=== PATIENT | male | born 1940 | race Caucasian/White ===

== ENCOUNTER 2016-12-31 | Outpatient (CLI) | payer MEDICARE, OTHER | END 2016-12-31 02:50 | disposition EMS.NT ==

== ENCOUNTER 2017-01-05 19:05 | Outpatient (CLI) | payer MEDICARE, OTHER | END 2017-01-05 19:06 | disposition EMS.NT | DX: Z03.89 Encounter for observation for other suspected diseases and conditions ruled out (principal); W18.39XA Other fall on same level, initial encounter; Y92.018 Other place in single-family (private) house as the place of occurrence of the external cause ==

== ENCOUNTER 2017-01-16 15:50 | Outpatient (CLI) | payer MEDICARE, OTHER | END 2017-01-16 15:51 | disposition EMS.NT | DX: Z03.89 Encounter for observation for other suspected diseases and conditions ruled out (principal); W01.0XXA Fall on same level from slipping, tripping and stumbling without subsequent striking against object, initial encounter; Y92.89 Other specified places as the place of occurrence of the external cause ==

== ENCOUNTER 2017-01-18 13:58 | Outpatient (CLI) | payer MEDICARE, OTHER | END 2017-01-18 13:59 | disposition critical access hospital (66) | DX: K59.00 Constipation, unspecified (principal); R33.9 Retention of urine, unspecified; W19.XXXA Unspecified fall, initial encounter | CPT/HCPCS: A0425; A0429 ==

== ENCOUNTER 2017-03-01 13:27 | Outpatient (CLI) | payer MEDICARE, OTHER | END 2017-03-01 13:28 | disposition short-term general hospital (02) | DX: R53.1 Weakness (principal); R41.0 Disorientation, unspecified; R10.9 Unspecified abdominal pain | CPT/HCPCS: A0425; A0429 ==

== ENCOUNTER 2017-03-07 20:36 | Outpatient (CLI) | payer MEDICARE, OTHER | END 2017-03-07 20:37 | disposition EMS.NT | LOC: EMS 20:36 | PROVIDERS: ATTEND Surgery | DX: Z03.89 Encounter for observation for other suspected diseases and conditions ruled out (principal) ==

== ENCOUNTER 2017-04-28 20:42 | Outpatient (CLI) | payer MEDICARE, OTHER | END 2017-04-28 20:43 | disposition short-term general hospital (02) | LOC: EMS 20:42 | PROVIDERS: ATTEND Surgery | DX: R53.1 Weakness (principal) | CPT/HCPCS: A0425; A0429 ==

== ENCOUNTER 2018-03-25 14:37 | Outpatient (CLI) | payer MEDICARE, OTHER | END 2018-03-25 14:38 | disposition home or self-care (01) | LOC: DI 14:37 | PROVIDERS: ATTEND Specialist | DX: I35.0 Nonrheumatic aortic (valve) stenosis (principal); I51.7 Cardiomegaly; I10 Essential (primary) hypertension; E78.5 Hyperlipidemia, unspecified; I25.10 Atherosclerotic heart disease of native coronary artery without angina pectoris; Z95.5 Presence of coronary angioplasty implant and graft | CPT/HCPCS: 93306 ==

== ENCOUNTER 2018-04-18 08:00 | Outpatient (CLI) | payer MEDICARE, OTHER | END 2018-04-18 08:01 | disposition home or self-care (01) | LOC: LAB.N 08:00 | PROVIDERS: ATTEND Specialist | DX: M54.9 Dorsalgia, unspecified (principal) | CPT/HCPCS: 36415; 82565 ==

== ENCOUNTER 2018-06-24 16:52 | Outpatient (CLI) | payer MEDICARE, OTHER ==
--- NOTE | 2018-06-24 23:40 | Ultrasound Report ---
Reason: INCONTINENCE Procedure Date: 06/24/2018 Accession Number: [id number] / [id number] Procedure: US - Bladder CPT Code: FULL RESULT: EXAM: PELVIS ULTRASOUND, LIMITED EXAM DATE: 06/24/2018 05:53 PM. CLINICAL HISTORY: Incontinence COMPARISON: None. TECHNIQUE: Real-time scanning was performed with static images obtained. FINDINGS: Bilateral ureteral jets are seen. The urinary bladder demonstrates normal contour without evidence of mass. Prevoid bladder volume is 80 cc. Postvoid residual bladder volume 67 cc. IMPRESSION: 1. Bladder contour is within normal limits. 2. Bilateral ureteral jets were seen. 3. Moderate post void residual bladder volume of 67 cc. Prevoid bladder volume was 80 cc. RADIA
== END 2018-06-24 16:53 | disposition home or self-care (01) ==
LOC: DI 16:52
PROVIDERS: ATTEND Internal Medicine
DX: R32 Unspecified urinary incontinence (principal)
CPT/HCPCS: 76857

== ENCOUNTER 2018-07-01 14:17 | Outpatient (CLI) | payer MEDICARE, OTHER ==
--- NOTE | 2018-07-01 15:22 | XRAY Report ---
Reason: PELVIC AND PERINEAL PAIN Procedure Date: 07/01/2018 Accession Number: [id number] / [id number] Procedure: XR - Sacrum/Coccyx CPT Code: FULL RESULT: EXAM: SACRUM AND COCCYX RADIOGRAPHY EXAM DATE: 07/01/2018 02:37 PM. HISTORY: Pelvic and perineal pain. COMPARISONS: None. TECHNIQUE: 2 views. FINDINGS: Alignment: Normal. The sacrum and coccyx are normally aligned. Bones: There is increased facet arthropathy at L5/S1, incompletely visualized and possibly indicative of spondylolysis. There is no acute fracture or dislocation. Joints: There are bilateral degenerative changes of the femoral acetabular joints, moderate. Sacral iliac joints are congruent. Soft Tissues: Soft tissue calcifications in the midline lower pelvis possibly prior seminal vesicle calcifications. IMPRESSION: No acute fracture or dislocation. RADIA
--- NOTE | 2018-07-01 15:27 | XRAY Report ---
Reason: PELVIC AND PERINEAL PAIN Procedure Date: 07/01/2018 Accession Number: [id number] / [id number] Procedure: XR - Pelvis 1 View CPT Code: FULL RESULT: EXAM: PELVIS RADIOGRAPHY EXAM DATE: 07/01/2018 02:42 PM. CLINICAL HISTORY: Pelvic and perineal pain. COMPARISON: None. TECHNIQUE: 1 view. FINDINGS: No fracture or dislocation is identified. There are degenerative changes of both femoral acetabular joints as well as at tendinous insertion sites. Sacroiliac joints are congruent. Pelvic calcifications are noted projecting over the region of the seminal vesicles. IMPRESSION: Degenerative changes as described. RADIA
== END 2018-07-01 14:18 | disposition home or self-care (01) ==
LOC: DI 14:17
PROVIDERS: ATTEND Specialist
DX: M16.0 Bilateral primary osteoarthritis of hip (principal)
CPT/HCPCS: 72170; 72220

== ENCOUNTER 2018-10-28 10:38 | Outpatient (CLI) | payer MEDICARE, OTHER | END 2018-10-28 10:39 | disposition short-term general hospital (02) | LOC: EMS 10:38 | PROVIDERS: ATTEND Surgery | DX: M54.9 Dorsalgia, unspecified (principal) | CPT/HCPCS: A0425; A0429 ==

== ENCOUNTER 2019-01-11 16:51 | Outpatient (CLI) | payer MEDICARE, OTHER ==
--- NOTE | 2019-01-12 08:58 | Ultrasound Report ---
Reason: LVTS / PVR Procedure Date: 01/11/2019 Accession Number: [id number] / [id number] Procedure: US - Bladder CPT Code: FULL RESULT: EXAM: PELVIS ULTRASOUND, LIMITED EXAM DATE: 01/11/2019 05:44 PM. CLINICAL HISTORY: UTI symptoms; difficulty urinating. Incontinence. COMPARISON: BLADDER 06/24/2018 5:06 PM. TECHNIQUE: Real-time scanning was performed with static images obtained. FINDINGS: The urinary bladder is not well distended measuring 4.6 x 4.5 x 5.1 with a pre-voiding volume of 56 cc. Patient was unable to void. A left ureteral jet was noted. Right ureter jet was not seen with greater than 4 minutes of direct imaging. Patient declined to wait further. IMPRESSION: 1. Low volume prevoid bladder; patient unable to void at this exam. 2. Right ureteral jet not visualized with greater than 4 minutes of imaging. RADIA
== END 2019-01-11 16:52 | disposition home or self-care (01) ==
LOC: DI 16:51
PROVIDERS: ATTEND Internal Medicine
DX: R39.198 Other difficulties with micturition (principal); R32 Unspecified urinary incontinence
CPT/HCPCS: 76857

== ENCOUNTER 2019-01-27 14:43 | Outpatient (CLI) | payer MEDICARE, OTHER | END 2019-01-27 14:44 | disposition critical access hospital (66) | LOC: EMS 14:43 | PROVIDERS: ATTEND Surgery | DX: R53.1 Weakness (principal); R41.0 Disorientation, unspecified | CPT/HCPCS: A0425; A0427 ==

== ENCOUNTER 2019-01-27 15:14 | Emergency (ER) | payer MEDICARE, OTHER ==
[2019-01-27 15:49] LABS: BASOPHILS % (AUTO) 0.3 %; EOSINOPHILS # (AUTO) 0.1 10^3/uL (0.0-0.7); HGB - HEMOGLOBIN 11.8 g/dL (14.0-18.0); LYMPHOCYTES # (AUTO) 1.1 10^3/uL (1.5-3.5); LYMPHOCYTES % (AUTO) 19.5 %; MEAN CORPUSCULAR HEMOGLOBIN 31.6 pg (27.0-31.0); MEAN CORPUSCULAR HGB CONC 34.4 g/dL (32.0-36.0); MEAN CORPUSCULAR VOLUME 91.9 fL (80.0-94.0); MONOCYTES # (AUTO) 0.6 10^3/uL (0.0-1.0); MONOCYTES % (AUTO) 10.7 %; NEUTROPHILS % (AUTO) 68.5 %; PLT - PLATELET COUNT 179 10^3/uL (130-450); RED BLOOD COUNT 3.74 10^6/uL (4.70-6.10); RED CELL DISTRIBUTION WIDTH 13.1 % (12.0-15.0); WHITE BLOOD COUNT 5.8 x10^3/uL (4.8-10.8)
[2019-01-27 16:03] LABS: ALBUMIN 3.2 g/dL (3.2-5.5); BILIRUBIN,TOTAL 0.9 mg/dL (0.2-1.0); CALCIUM 8.7 mg/dL (8.5-10.3); CREATININE 0.8 mg/dL (0.6-1.2); TOTAL PROTEIN 6.4 g/dL (6.7-8.2)
--- NOTE | 2019-01-27 16:16 | ED Physician Documentation ---
PD HPI ABD PAIN - Stated complaint Stated Complaint: WEAKNESS - Chief complaint Chief Complaint: Abd Pain - History obtained from History obtained from: Patient - History of Present Illness Timing - onset: How many weeks ago (1 week of general abd bloating and fullness, and does not remember having BM for at least that long. Feels he is constipated. Also having intermittent incontinence of urine, with feeling he has to suddenly go and "squirting" some out. Then feeling he can't urinate when wanting to at times. Feeling of incomplete emptying. He feels this started after having a catheter placed a month ago for urinary retention and had the catheter just 1-2 days, and he says the person who took it out "pulled it out too fast" and he has had urinary symptoms since (he does not seem to accept the idea that he had urinary symptoms prior, which led to the need for the catheter in the first place).) Timing - duration: Weeks Timing - details: Gradual onset, Waxing and waning Quality: Cramping, Aching, Fullness/distended Location: Suprapubic, Other (lower abd) Radiation: No: Left flank, Right flank Worsened by: Eating Associated symptoms: Constipation. No: Nausea, Vomiting, Diarrhea Similar symptoms before: Has not had sx before Recently seen: Emergency Dept (at [facility] for abd pain and had catheter placed for urinary retention, but he had it removed in 1-2 days later as it was too uncomfortable.) Review of Systems Constitutional: denies: Fever, Chills Nose: denies: Rhinorrhea / runny nose, Congestion Throat: denies: Sore throat Respiratory: denies: Cough GI: reports: Abdominal Pain, Constipation. denies: Nausea, Vomiting, Diarrhea : reports: Frequency, Unable to Void, Incontinent Skin: denies: Rash, Lesions PD PAST MEDICAL HISTORY - Past Medical History Cardiovascular: High cholesterol Endocrine/Autoimmune: Type 2 diabetes - Past Surgical History Cardiovascular: Coronary stent - Present Medications Home Medications: Ambulatory Orders Medication Instructions Recorded Confirmed Bisacodyl 10 mg PO DAILY 08/28/16 08/28/16 Bupropion HCl [Bupropion HCl Sr] 150 mg PO BID 08/28/16 08/28/16 Carvedilol [Coreg] 6.25 mg PO BID 08/28/16 08/28/16 Clopidogrel Bisulfate [Plavix] 75 mg PO DAILY 08/28/16 08/28/16 Escitalopram Oxalate [Lexapro] 20 mg PO DAILY 08/28/16 08/28/16 Insulin Glargine [Lantus] 08/28/16 Lisinopril/Hydrochlorothiazide 1 tab PO DAILY 08/28/16 08/28/16 [Lisinopril-Hctz 20-25 mg Tab] Pravastatin [Pravachol] 20 mg PO DAILY 08/28/16 08/28/16 Trazodone HCl 100 mg PO DAILY 08/28/16 08/28/16 metFORMIN [Glucophage] 1,000 mg PO BID 08/28/16 08/28/16 Oxybutynin [Ditropan] 5 mg PO BID #20 tablet 01/27/19 Polyethylene Glycol 3350 [Miralax] 17 gm PO DAILY PRN #1 bottle 01/27/19 - Allergies Allergies/Adverse Reactions: Allergies Allergy/AdvReac Type Severity Reaction Status Date / Time Sulfa (Sulfonamide Allergy Unknown Verified 01/27/19 15:20 Antibiotics) - Social History Does the pt smoke?: No Smoking Status: Never smoker PD ED PE NORMAL - Vitals Vital signs reviewed: Yes - General General: Alert and oriented X 3, Well developed/nourished - HEENT HEENT: Pharynx benign - Neck Neck: Supple, no meningeal sign - Cardiac Cardiac: RRR, No murmur - Respiratory Respiratory: Clear bilaterally - Abdomen Abdomen: Soft, Non tender, Non distended. No: Normal bowel sounds (hypoactive) Results - Vitals Vitals: Vital Signs - 24 hr 01/27/19 01/27/19 01/27/19 15:16 15:24 18:29 Temperature 36.8 C 36.9 C Heart Rate 77 88 88 Respiratory 18 18 20 Rate Blood Pressure 147/78 H 191/94 H O2 Saturation 100 98 96 Oxygen O2 Source Room air - Labs Labs: Laboratory Tests 01/27/19 01/27/19 01/27/19 15:44 15:44 15:44 WBC 5.8 RBC 3.74 L Hgb 11.8 L Hct 34.4 L MCV 91.9 MCH 31.6 H MCHC 34.4 RDW 13.1 Plt Count 179 MPV 9.0 Neut # (Auto) 4.0 Lymph # (Auto) 1.1 L [place] # (Auto) 0.6 Eos # (Auto) 0.1 Baso # (Auto) 0.0 Absolute Nucleated RBC 0.00 Nucleated RBC % 0.1 Sodium 137 Potassium 3.4 L Chloride 100 L Carbon Dioxide 30 Anion Gap 7.0 BUN 15 Creatinine 0.8 Estimated GFR (MDRD) 94 Glucose 243 H Calcium 8.7 Phosphorus 2.8 Magnesium 1.7 Total Bilirubin 0.9 AST 21 ALT 15 Alkaline Phosphatase 84 Total Protein 6.4 L Albumin 3.2 Globulin 3.2 Albumin/Globulin Ratio 1.0 Lipase 19 L Urine Color Urine Clarity Urine pH Ur Specific [place] Urine Protein Urine Glucose (UA) Urine Ketones Urine Occult Blood Urine Nitrite Urine Bilirubin Urine Urobilinogen Ur Leukocyte Esterase Ur Microscopic Review Urine Culture Comments 01/27/19 17:39 WBC RBC Hgb Hct MCV MCH MCHC RDW Plt Count MPV Neut # (Auto) Lymph # (Auto) [place] # (Auto) Eos # (Auto) Baso # (Auto) Absolute Nucleated RBC Nucleated RBC % Sodium Potassium Chloride Carbon Dioxide Anion Gap BUN Creatinine Estimated GFR (MDRD) Glucose Calcium Phosphorus Magnesium Total Bilirubin AST ALT Alkaline Phosphatase Total Protein Albumin Globulin Albumin/Globulin Ratio Lipase Urine Color YELLOW Urine Clarity CLEAR Urine pH 7.0 Ur Specific [place] 1.015 Urine Protein TRACE Urine Glucose (UA) >=1000 H Urine Ketones NEGATIVE Urine Occult Blood NEGATIVE Urine Nitrite NEGATIVE Urine Bilirubin NEGATIVE Urine Urobilinogen 0.2 (NORMAL) Ur Leukocyte Esterase NEGATIVE Ur Microscopic Review NOT INDICATED Urine Culture Comments NOT INDICATED - Rads (name of study) abd CT Radiology: Prelim report reviewed, Discussed with rads (no acute process in abd. Large amount of fatty tissue symmetrically in the retroperitoneal space, c/w lipomatosis, but he did not feel it was causing abd symptoms even though pushing into abd cavity space. ), See rad report PD MEDICAL DECISION MAKING - ED course Complexity details: reviewed results (post void residual was 262 ml, but he does not want another bustillos (had one last month and feels that was the cause of his problems).), re-evaluated patient (His CT did not show obvious cause for pain. There was a dramatic amount of lipomatous enlargement in retroperitoneal space, that it is crowding about 2/3 of the abd cavity. This may be giving him pressure on intestines with feeling of fullness. I talked with Radiologist and he did not feel it was tumorous, given the symmetry of it. PMD will maybe want to give surgical referral if symptoms do not improve with working on bladder spasms idea. ), considered differential (consider intestinal pain such as constipation, as he feels it is. However he is having bladder symptoms too. ), d/w patient Departure - Departure Disposition: Home, Self Care Clinical Impression: Bladder spasms, Lipomatosis Constipation Qualifiers: Constipation type: unspecified constipation type Qualified Code(s): K59.00 - Constipation, unspecified Condition: Stable Record reviewed to determine appropriate education?: Yes Instructions: ED Constipation Follow-Up: Franco Hernandes MD [Primary Care Provider] - Prescriptions: Oxybutynin [Ditropan] 5 mg PO BID #20 tablet Polyethylene Glycol 3350 [Miralax] 17 gm PO DAILY PRN #1 bottle PRN Reason: Constipation Comments: For the constipation, you can use a dose of MiraLAX every 1-2 hours tonight and tomorrow until you have bowel movements. Then take it just once daily. For your troubles urinating, it does sound perhaps like bladder spasms and you can try oxybutynin which is a muscle relaxant for the bladder and see if that improves your urine output and less incontinence. Stay well-hydrated. Continue your other usual medicines. Follow-up with your primary care next week, call for an appointment. Discharge Date/Time: 01/27/19 18:45
[2019-01-27 16:20] LABS: MAGNESIUM 1.7 mg/dL (1.7-2.8); PHOSPHORUS 2.8 mg/dL (2.5-4.6)
[2019-01-27] MEDS ORDERED: MINERAL OIL ENEMA 133 ML BOTTLE RC STA (16:45)
[2019-01-27] MEDS ORDERED: DOCUSATE SODIUM 100 MG CAPSULE PO STA (16:45)
[2019-01-27] MEDS ORDERED: SODIUM CHLORIDE 0.9% 1,000 ML IV ONE (16:45)
[2019-01-27] MEDS ORDERED: IOPAMIDOL-300 100 ML VIAL ONE (16:59)
[2019-01-27] MEDS ORDERED: IOPAMIDOL-300 100 ML VIAL IVP ONE (17:27)
[2019-01-27 17:49] LABS: BILIRUBIN,URINE NEGATIVE (NEGATIVE); GLUCOSE, URINE (UA) >=1000 mg/dL (NEGATIVE); KETONES,URINE (UA) NEGATIVE (NEGATIVE); LEUKOCYTE ESTERASE, URINE NEGATIVE (NEGATIVE); NITRITE,URINE NEGATIVE (NEGATIVE); OCCULT BLOOD,URINE NEGATIVE (NEGATIVE); PROTEIN,URINE TRACE mg/dL (NEGATIVE); UROBILINOGEN,URINE 0.2 (NORMAL) E.U./dL (NORMAL)
[2019-01-27 17:52] LABS: CLARITY,URINE CLEAR (CLEAR)
--- NOTE | 2019-01-27 18:00 | CT Report ---
Reason: abd distension and discomfort for several days Procedure Date: 01/27/2019 Accession Number: [id number] / [id number] Procedure: CT - Abdomen/Pelvis W CPT Code: FULL RESULT: EXAM: CT ABDOMEN AND PELVIS EXAM DATE: 01/27/2019 05:25 PM. CLINICAL HISTORY: Abd distension and discomfort for several days. COMPARISONS: None. TECHNIQUE: Routine helical CT imaging was performed through the abdomen and pelvis. IV contrast: ISOVUE 300 100mL. Enteric contrast: No. Reconstructions: Coronal and sagittal. In accordance with CT protocol optimization, one or more of the following dose reduction techniques were utilized for this exam: automated exposure control, adjustment of mA and/or KV based on patient size, or use of iterative reconstructive technique. FINDINGS: Lung Bases: Unremarkable. Liver: Normal. No masses. Gallbladder/Bile Ducts: Unremarkable. Spleen: Normal. Pancreas: Normal. Adrenal Glands: Small right adrenal adenoma. Unremarkable left adrenal. Kidneys: Small probable cysts. Bilateral perinephric fat stranding. Otherwise unremarkable. No stone or hydronephrosis. Peritoneal Cavity/Bowel: Normal. No free fluid, free air or adenopathy. No masses or acute inflammatory process. The appendix is well visualized and normal. Pelvic Organs: Normal. The bladder and visualized pelvic organs are within normal limits. Vasculature: No aneurysms or other significant abnormality. Bones: No significant abnormality. Other: None. IMPRESSION: Incidental findings as described. No acute disease. RADIA ADDENDUM: 01/27/19 18:25 Also noted is prominent retroperitoneal lipomatosis, a benign condition.
[2019-01-27 18:29] VITALS: BP 191/94
[2019-01-27] MEDS ORDERED: POLYETHYLENE GLYCOL 3350 17 GM PACKET PO STA (18:35)
== END 2019-01-27 18:45 | disposition home or self-care (01) ==
LOC: EDUNIT# → ED 15:14
DX: N32.89 Other specified disorders of bladder (principal); E88.2 Lipomatosis, not elsewhere classified; K59.00 Constipation, unspecified; E11.9 Type 2 diabetes mellitus without complications; Z79.4 Long term (current) use of insulin; Z79.02 Long term (current) use of antithrombotics/antiplatelets
CPT/HCPCS: 36415; 51798; 74177; 80053; 81003; 83690; 83735; 84100; 85025; 96360; 96361; 99283; A9270; Q9967; 81001; 87086

== ENCOUNTER 2019-02-07 19:30 | Outpatient (CLI) | payer MEDICARE, OTHER | END 2019-02-07 19:31 | disposition short-term general hospital (02) | LOC: EMS 19:30 | PROVIDERS: ATTEND Surgery | DX: R44.9 Unspecified symptoms and signs involving general sensations and perceptions (principal) | CPT/HCPCS: A0425; A0429 ==

== ENCOUNTER 2019-03-22 13:54 | Outpatient (CLI) | payer MEDICARE, OTHER ==
--- NOTE | 2019-03-22 15:07 | XRAY Report ---
Reason: PNEUMONIA, UNSPECIFIED ORGANISM Procedure Date: 03/22/2019 Accession Number: [id number] / [id number] Procedure: XRN - Chest 2 View X-Ray CPT Code: 89724 FULL RESULT: EXAM: CHEST RADIOGRAPHY EXAM DATE: 03/22/2019 02:12 PM. CLINICAL HISTORY: Pneumonia, unspecified organism. COMPARISON: ABDOMEN ACUTE 08/28/2016 8:38 PM. TECHNIQUE: 2 views. FINDINGS: Lungs/Pleura: No focal opacities evident. No pleural effusion. No pneumothorax. Normal volumes. Mediastinum: Heart and mediastinal contours are unremarkable. Other: Cervical spinal fusion hardware is partially imaged. IMPRESSION: No definite air space disease is detected. RADIA
== END 2019-03-22 13:55 | disposition home or self-care (01) ==
LOC: DI.N 13:54
PROVIDERS: ATTEND Specialist
DX: J18.9 Pneumonia, unspecified organism (principal)
CPT/HCPCS: 71046

== ENCOUNTER 2019-06-26 12:33 | Outpatient (CLI) | payer MEDICARE, OTHER | END 2019-06-26 12:34 | disposition EMS.NT | LOC: EMS 12:33 | PROVIDERS: ATTEND Surgery | DX: Z03.89 Encounter for observation for other suspected diseases and conditions ruled out (principal) ==

== ENCOUNTER 2019-09-11 10:29 | Outpatient (CLI) | payer MEDICARE, OTHER | END 2019-09-11 10:30 | disposition EMS.NT | LOC: EMS 10:29 | PROVIDERS: ATTEND Surgery | DX: R73.09 Other abnormal glucose (principal) ==

== ENCOUNTER 2019-09-18 07:44 | Outpatient (CLI) | payer MEDICARE, OTHER | END 2019-09-18 07:45 | disposition EMS.NT | LOC: EMS 07:44 | PROVIDERS: ATTEND Surgery | DX: R73.09 Other abnormal glucose (principal) ==

== ENCOUNTER 2019-10-02 10:42 | Outpatient (CLI) | payer MEDICARE, OTHER | END 2019-10-02 10:43 | disposition EMS.NT | LOC: EMS 10:42 | PROVIDERS: ATTEND Surgery | DX: E16.2 Hypoglycemia, unspecified (principal) ==

== ENCOUNTER 2019-10-21 13:15 | Outpatient (CLI) | payer MEDICARE, OTHER | END 2019-10-21 13:16 | disposition short-term general hospital (02) | LOC: EMS 13:15 | PROVIDERS: ATTEND Surgery | DX: E11.649 Type 2 diabetes mellitus with hypoglycemia without coma (principal) | CPT/HCPCS: A0425; A0427 ==

== ENCOUNTER 2019-11-27 14:21 | Outpatient (CLI) | payer MEDICARE, OTHER ==
--- NOTE | 2019-11-28 14:10 | XRAY Report ---
Reason: R HIP PAIN Procedure Date: 11/27/2019 Accession Number: [id number] / [id number] Procedure: XRN - Pelvis 1 View CPT Code: Final Report FULL RESULT: EXAM: PELVIS RADIOGRAPHY EXAM DATE: 11/27/2019 02:35 PM. CLINICAL HISTORY: R hip pain. COMPARISON: 07/01/2018. TECHNIQUE: 1 view. FINDINGS: Bones: Stable mild contour irregularity of the lateral right iliac crest. No acute fracture or bone destructive process. Trochanteric enthesophytes bilaterally. Joints: No subluxation. Stable mild degenerative changes of bilateral hips. Degenerative changes lower lumbar spine. Soft Tissues: Vascular calcifications. IMPRESSION: 1. No acute bony or articular abnormalities identified. 2. Stable bilateral hip DJD and trochanteric enthesophytes. RADIA
== END 2019-11-27 14:22 | disposition home or self-care (01) ==
LOC: DI.N 14:21
PROVIDERS: ATTEND Physician Assistant Medical
DX: M16.0 Bilateral primary osteoarthritis of hip (principal); M76.892 Other specified enthesopathies of left lower limb, excluding foot; M76.891 Other specified enthesopathies of right lower limb, excluding foot
CPT/HCPCS: 72170

== ENCOUNTER 2020-04-11 08:56 | Outpatient (CLI) | payer MEDICARE, OTHER | END 2020-04-11 08:57 | disposition EMS.NT | LOC: EMS 08:56 | PROVIDERS: ATTEND Surgery | DX: M25.551 Pain in right hip (principal); M25.552 Pain in left hip ==

== ENCOUNTER 2020-07-01 07:56 | Outpatient (CLI) | payer MEDICARE, OTHER | END 2020-07-01 07:57 | disposition EMS.NT | LOC: EMS 07:56 | PROVIDERS: ATTEND Surgery | DX: R73.09 Other abnormal glucose (principal) ==

== ENCOUNTER 2020-07-26 14:50 | Outpatient (CLI) | payer MEDICARE, OTHER ==
--- NOTE | 2020-07-26 17:24 | CONSULTATION NOTE ---
Palliative Care Consultation - Referral Referring Provider: Jeana Byrne PA-C Time of Visit: [id number] Referral setting: Home Referral Reason: Cognitive Impairment/Urinary incontinence/Advanced Care Planning - Information Sources Records reviewed: Previous records reviewed History/Review of Systems obtained from: Patient, Family (, Anastasiya and son, BRYANT present) Exam limitations: Clinical condition (STM impairments) - History of Present Illness Brief History of Present Illness: This is a 79-year-old man who is seen and evaluated within his home for initial palliative care consultation with his and son present. The patient's is finding increased difficulty caring for the patient at home. The patient himself, is requiring increased assistance within the home. This is gotten progressively worse over the last year. The patient's son, BRYANT moved in with his parents approximately 1 year ago to provide additional assistance. The patient's is managing his medications as well as the household. The patient's son, BRYANT and his are alternating and who is cooking meals to relieve some burden. The patient's family recognize his cognitive impairment. They report that his long-term memory is intact but he forgets things easily and requires repetition. For example, the patient recently forgot when his son traveled. The patient himself does not recognize any difficulty with his memory. He no longer drives. He requires assistance with dressing and meals. The patient's greatest complaint is in regards to his urinary incontinence. This is been present for at least 1 year and is worsening. The patient denies dysuria, hematuria or suprapubic pain. He is on tamsulosin for BPH. He was scheduled to see his urologist but as the patient's was recently in the hospital this fell through the cracks at the present time. The patient is presently wearing depends. The patient has a history of frequent falls, none recently. The home that the family resides in has multiple level with stairs. Unfortunately the patient has to a send and descend a set of approximately 3 stairs to go to his bedroom as well as the closest bathroom. He uses a walker. Some adaptations have made within the home for safety such as handrails. The patient's appetite has significantly decreased with noted weight loss in the last 6 months. He finds that his clothes are "falling off of me." He snacks throughout the day and does consume dinner but this is a smaller portion than what he previously consumed. He does have a history of diabetes mellitus and is on Lantus 10 units nightly as well as metformin 1000 mg twice daily blood sugars have been ranging between 1 30-1 70. Medical/Surgical History - Past Medical History Cardiovascular: reports: Hypertension, High cholesterol Respiratory: reports: None Neuro: reports: Other (Cognitive impairment) Endocrine/Autoimmune: reports: Type 2 diabetes GI: reports: Chronic constipation : reports: Benign prostate hypertrophy, Incontinence HEENT: reports: Chronic hearing loss Psych: reports: Depression, Anxiety, Other (Insomnia) Musculoskeletal: reports: Chronic back pain - Past Surgical History General: reports: Appendectomy Cardiovascular: reports: Coronary stent HEENT: reports: Cataracts (only one eye s/p cataract extraction) - Substance History Use: Uses substance without health or social issues: Tobacco (Former tobacco use starting in 9th grade.), Cannabis (finds smoking a joint calms his mood and helos him sleep) Social History - Living Situation Living arrangement: At home Living Situation: With spouse/s.o., With family (son, BRYANT) Support System: Patient grew up in [facility] [place]. He was adopted. He served in the [employer] for 4 years active and retired in the [employer]. 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 He met his , Anastasiya at the [employer] and they have been for 56 years. They have 3 children, 2 daughters and 1 son. Their son, BRYANT presently resides with them. Their daughters reside in [place] in [place]. They relocated to [facility] approximately 20 years ago as the patient had [place] and liked the area. They have 1 pet within the home, a dog Lisa. Family History - Family History Family History Comment/Other: Patient was adopted. Is aware that his mother is and had diabetes mellitus Medications/Allergies - Medications Home Medications: Ambulatory Orders Medication Instructions Recorded Confirmed Bisacodyl 10 mg PO DAILY PRN 08/28/16 08/28/16 Carvedilol [Coreg] 6.25 mg PO BID 08/28/16 07/29/20 Clopidogrel Bisulfate [Plavix] 75 mg PO DAILY 08/28/16 07/29/20 Escitalopram Oxalate [Lexapro] 20 mg PO DAILY 08/28/16 07/29/20 Insulin Glargine [Lantus] 10 units SQ DAILY 08/28/16 Pravastatin [Pravachol] 20 mg PO DAILY 08/28/16 07/29/20 Trazodone HCl 100 mg PO DAILY PRN 08/28/16 07/29/20 metFORMIN [Glucophage] 1,000 mg PO BID 08/28/16 07/29/20 Buspirone HCl 10 mg PO BID 07/29/20 07/29/20 Losartan Potassium 50 mg PO DAILY 07/29/20 07/29/20 Polyethylene Glycol 3350 [Miralax] 17 gm PO DAILY 07/29/20 07/29/20 Tamsulosin [Flomax] 0.4 mg PO DAILY 07/29/20 07/29/20 Trospium Chloride 20 mg PO BID 07/29/20 07/29/20 amLODIPine [Norvasc] 5 mg PO DAILY 07/29/20 07/29/20 - Allergies Allergies/Adverse Reactions: Allergies Allergy/AdvReac Type Severity Reaction Status Date / Time Sulfa (Sulfonamide Allergy Unknown Verified 07/28/20 16:05 Antibiotics) Review of Systems - Constitutional Constitutional: reports: Poor appetite, Weight loss. denies: Fever - Eyes Eyes: reports: Corrective lenses - Ears, Nose & Throat Ears, Nose & Throat: reports: Hearing loss. denies: Hearing aids (will not wear his hearing aids as he did not like them), Dentures - Cardiovascular Cardiovascular: denies: Palpitations, Chest pain - Respiratory Respiratory: denies: Cough, SOB at rest - Gastrointestinal Gastrointestinal: reports: Constipation. denies: Abdominal pain, Diarrhea, Nausea, Vomiting - Genitourinary Genitourinary: reports: Incontinence - Musculoskeletal Musculoskeletal: reports: Assistive devices (walker). denies: Joint pain - Integumentary Integumentary: reports: Dryness - Neurological Neurological: reports: General weakness, Memory problems - Psychiatric Psychiatric: reports: Depression, Anxiety - Endocrine Endocrine: reports: Diabetes type 2 - Hematologic/Lymphatic Hematologic/Lymphatic: denies: Recurrent infections - All Other Systems All Other Systems: reports: Reviewed and negative Physical Exam - Vital Signs Temperature: 36.3 C Pulse Rate: 76 O2 Saturation: 98 (on RA) Blood Pressure: 147/78 (left wrist) - Physical Exam General Appearance: positive: No acute distress, Alert, Other (appears older than stated age, dishelved) Eyes Bilateral: positive: Normal inspection ENT: positive: No signs of dehydration, Other (poor dentition; dried, yellow cerumen to right ear canal removed with lighted curette and otoscope with TM visualized and intact without scarring noted) Neck: positive: Trachea midline Cardiovascular: positive: Regular rate & rhythm, Systolic murmur (+2/6 BOLA) Respiratory: positive: No respiratory distress, Breath sounds nml Abdomen: positive: Non-tender, Soft, Nml bowel sounds Skin: positive: Dryness Extremities: positive: Full ROM, No pedal edema Neurologic/Psychiatric: positive: Oriented x3, Weakness, Other (ambulates with stooped posture with walker and slight shuffle; cantakerous;) Palliative Care - POLST Patient has POLST: No Pain: No pain (at present, history of back pain) Nausea: None Anorexia: Mild (1-3) Dyspnea: None Depression: Mild (1-3) (controlled) Sleep: Sleeps well Constipation: Yes, Intermittent constipation Performance Status: Ambulates with a walker, History of frequent falls, requires assistance with stairs. Unable to make meals. No longer drives. PPS 50% - Palliative Care Discussion: The patient has had a functional and cognitive decline most noted over the last 6 months to 1 year by his family reports. The patient himself does not recognize is underlying cognitive impairment. He does have some difficulties due to his underlying hearing loss which make it compounded with his cognitive impairments. The patient himself does not perceive his deficits outside of being unable to drive. He has ultimately per his perception adapted. He does have stairs within the home that limit his ability to easily get to his bedroom and b athroom. He and his have additional support by their son, BRYANT who has been residing with him for the past year. The patient's , Anastasiya reports that she is fairly overwhelmed due to the increasing caregiver burden that she is finding persisting due to the patient's decline. She would like to have additional support within the home. Impression and Recommendations - Palliative Care Impression: This is a 79-year-old man who has had functional and cognitive decline steadily over the last 6 months to 1 year with underlying cognitive impairment, urinary incontinence, and unintentional weight loss. He finds his urinary incontinence is the most troublesome burden at the present time and is to follow-up with urology. Palliative care to continue to provide support for symptom management, exploration of goals of care, teasing out end-of-life goals, and advanced care planning. Recommendations/Counseling Done: 1. Caregiver [place]. Patient's is feeling overwhelmed due to her own health concerns as well as managing the patient's health and medication. Request that home health social services specialist provide additional support. Supportive listening provided. 2. Chronic Back Pain. Presently reports his back pain is stable. Encouraged use of walker and to call for assistance from his family with ambulation. Request that home health physical therapy and occupational therapy work with the patient to reduce burden from underlying condition as well as adaptation within the home to improve independence and reduce caregiver burden on the patient's . 3.. History of Frequent falls. No recent falls. Hearing impairment, chronic back pain and cognitive impairment are compounding factors. Fall precautions. 4. Cognitive impairment. Noted STM impairment. Support from and son within the home. Evaluate in further detail at next visit. 5. Urinary incontinence with LUTS. Continue medication as prescribed. Follow-up with urology. Recommended not drinking liquid 1 hour prior to bed and void right before bed. Use poise pads with depends overnight to reduce saturation of pads on bad. 6. Weight loss. Unintentional. Patient with severe taste changes. He has had some fluctuation in his appetite. Enjoys his 's cooking vs his son's cooking. Continue to encourage frequent snacking throughout the day. 7. Excessive cerumen right ear canal. Lighted curette used and removed dry cerumen with otoscope. Tolerated procedure well with TM visualized and intact. 8. Constipation. Due to sedentary lifestyle and decrease oral intake. Initiate miralax 17g po daily dissolved in 4 ounces of liquid. Reviewed purpose, dose and side effect with understanding verbalized. 9. Advanced Care Planning. No POLST in the home. Provided blank copy for review for patient and family. Has DPOA paperwork completed listing his as primary decision maker and then his daughter, Davon as secondary and request that this be provided at next visit. . Palliative care to continue to provide support as it is not feasible for the patient to leave his present setting. FACE to FACE: It would be a taxing considerable effort for the patient to leave his home secondary to his chronic back pain, cognitive impairment, lower extremity weakne ss, and history of frequent falls. PT for strengthening program and evaluation for home safety. Training with caregivers, equipment recommendations. OT for strength training, energy conservation. Request [employer] for support for the patient's and community resource support. Time Spent: F/u in 2-4 weeks or PRN. Total time spent 80 minutes with greater than 50% of this spent in counseling and coordination of care with patient, spouse and son; palliative care philosophy; supportive listening; examination of patient; symptom management and anticipatory guidance. Disclaimer: The chart note was formulated using voice recognition technology and unfortunately sound alike errors may occur.
== END 2020-07-26 14:51 | disposition home or self-care (01) ==
LOC: PC 14:50
PROVIDERS: ATTEND Nurse Practitioner Family
DX: Z51.5 Encounter for palliative care (principal); R32 Unspecified urinary incontinence; R63.0 Anorexia; R63.4 Abnormal weight loss; R41.3 Other amnesia; K59.00 Constipation, unspecified; H61.21 Impacted cerumen, right ear; G89.29 Other chronic pain; R53.1 Weakness; E11.9 Type 2 diabetes mellitus without complications; Z79.4 Long term (current) use of insulin; Z79.899 Other long term (current) drug therapy; Z79.02 Long term (current) use of antithrombotics/antiplatelets; Z74.1 Need for assistance with personal care; Z91.81 History of falling; Z74.09 Other reduced mobility; Z87.891 Personal history of nicotine dependence
CPT/HCPCS: 99345

== ENCOUNTER 2020-08-05 15:15 | Outpatient (CLI) | payer MEDICARE, OTHER ==
--- NOTE | 2020-08-05 18:24 | CONSULTATION NOTE ---
Palliative Care Follow Up - Referral Referring Provider: Jeana Byrne PA-C Time of Visit: 7455-3301 Referral setting: Home Referral Reason: Cognitive Impairment/Debility - Information Sources Records reviewed: Previous records reviewed History/Review of Systems obtained from: Patient, Family (, Anastasiya and son, BRYANT present) Exam limitations: Clinical condition (STM impairment, [place]) - History of Present Illness Update Brief HPI Update: This is a 79-year-old man who is seen in follow-up today within his home with his and son present for cognitive impairment and debility. The patient has had progressive functional decline specifically in the last year. The patient has supplemental support from his and son, BRYANT. Patient's son, BRYANT moved in with his parents approximately 1 year ago to provide additional assistance. BRYANT defers to his mother in regards to direction for assistance. The patient has had progressive weakness due to his underlying congestive heart failure, cognitive impairment, and underlying diabetes mellitus. Since last evaluation the patient fell out of bed without any injuries sustained. EMS was contacted for evaluation and lift assistance as the patient was unable to get off of the floor independently. He ambulates with a walker, but the home is a split level that require stairs to even go to the restroom or bathroom. He spends his days either sitting in the living room or lying in bed. He is pending home health PT and OT evaluation. The patient has a longstanding history of diabetes mellitus diagnosed approximately in 1989. He is presently on Lantus 10 units nightly as well as metformin 1000 mg twice daily. The patient's reports concerns as his blood glucose levels have been more elevated than usual despite no change in dietary habit. The patient's recent blood glucose levels are as follows 182, 180, 229, 275, 183, 147, 236. The patient has been asymptomatic in regards to any hypo-or hyperglycemia events. The patient's reports that the patient's last hemoglobin A1c was "so good they almost discontinued his insulin." The patient himself vocalizes frustration due to his inability to recall things. He is able to acknowledge that is his forgetful and this is further supported by his family. He has a long standing history of constipation. Recently he reports that his bowel movements have been more regular. His has not initiated miralax daily as previously recommended for management. Patient is seen out of bed in his recliner, appears older than stated age slightly disheveled. No evidence of acute distress. Patient has a past medical history of hypertension, hyperlipidemia, type 2 diabetes mellitus, chronic constipation, BPH, incontinence, chronic hearing loss, depression, anxiety, insomnia, chronic back pain, and cognitive impairment. Social History - Living Situation Living arrangement: At home Living Situation: With spouse/s.o., With family (son, BRYANT) Support System: Patient is adopted and grew up in [place], [place]. 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 He worked in [place] for [employer] for over 20 years in [place]. He met his , Anastasiya while he was in the and they have been for 56 years. They have 3 children, 2 daughters and 1 son who are all locally in the area. Medications/Allergies - Medications Home Medications: Ambulatory Orders Medication Instructions Recorded Confirmed Bisacodyl 10 mg PO DAILY PRN 08/28/16 08/28/16 Carvedilol [Coreg] 6.25 mg PO BID 08/28/16 07/29/20 Clopidogrel Bisulfate [Plavix] 75 mg PO DAILY 08/28/16 07/29/20 Escitalopram Oxalate [Lexapro] 20 mg PO DAILY 08/28/16 07/29/20 Insulin Glargine [Lantus] 10 units SQ DAILY 08/28/16 Pravastatin [Pravachol] 20 mg PO DAILY 08/28/16 07/29/20 Trazodone HCl 100 mg PO DAILY PRN 08/28/16 07/29/20 metFORMIN [Glucophage] 1,000 mg PO BID 08/28/16 07/29/20 Buspirone HCl 10 mg PO BID 07/29/20 07/29/20 Losartan Potassium 50 mg PO DAILY 07/29/20 07/29/20 Polyethylene Glycol 3350 [Miralax] 17 gm PO DAILY 07/29/20 07/29/20 Tamsulosin [Flomax] 0.4 mg PO DAILY 07/29/20 07/29/20 Trospium Chloride 20 mg PO BID 07/29/20 07/29/20 amLODIPine [Norvasc] 5 mg PO DAILY 07/29/20 07/29/20 - Allergies Allergies/Adverse Reactions: Allergies Allergy/AdvReac Type Severity Reaction Status Date / Time Sulfa (Sulfonamide Allergy Unknown Verified 07/28/20 16:05 Antibiotics) Review of Systems - Constitutional Constitutional: reports: Fatigue, Poor appetite, Weight loss. denies: Fever - Eyes Eyes: reports: Corrective lenses - Ears, Nose & Throat Ears, Nose & Throat: reports: Hearing loss. denies: Hearing aids - Cardiovascular Cardiovascular: denies: Chest pain, Edema - Respiratory Respiratory: denies: Cough, SOB with exertion - Gastrointestinal Gastrointestinal: reports: Constipation (chronic). denies: Abdominal pain, Diarrhea, Vomiting - Genitourinary Genitourinary: denies: Dysuria - Musculoskeletal Musculoskeletal: reports: Back pain, Assistive devices, Transfer issues - Integumentary Integumentary: reports: Dryness - Neurological Neurological: reports: General weakness, Memory problems - Psychiatric Psychiatric: reports: Depression, Anxiety - Endocrine Endocrine: reports: Diabetes type 2, Other (reports to feet being cold all the time) - Hematologic/Lymphatic Hematologic/Lymphatic: denies: Recurrent infections - All Other Systems All Other Systems: reports: Reviewed and negative (ROS supplemented by patient's and son given patient is a poor historian due to cognitive impairment as well as difficulty hearing.) Physical Exam - Vital Signs Temperature: 36.3 C Pulse Rate: 72 O2 Saturation: 98 (on RA at rest) Blood Pressure: 155/82 (left wrist cuff) - Physical Exam General Appearance: positive: No acute distress, Alert, Other (appears older than stated age, slightly dishelved) ENT: positive: No signs of dehydration, Other (poor dentition) Neck: positive: Trachea midline Cardiovascular: positive: Regular rate & rhythm, Systolic murmur (+2/6 BOLA) Respiratory: positive: No respiratory distress, Breath sounds nml. negative: Rales Abdomen: positive: Non-tender, Soft, Nml bowel sounds, Other (bladder nondi stended) Skin: positive: Dryness Extremities: positive: Full ROM, No pedal edema Neurologic/Psychiatric: positive: Oriented x3, Weakness, Other (ambulates with walker; Clock test preformed: extended time to complete, large [place], numbers essentially evenly spaced, reported the number "12" twice, hands of clock are not accurate in size or on the correct time requested.). negative: Sensory loss (monofilament to bilateral feet intact) Palliative Care - POLST Patient has POLST: No Pain: No pain, Comment (history of back pain) Depression: Mild (1-3) (controlled) Constipation: Yes, Intermittent constipation Performance Status: PPS 50% - Palliative Care Discussion: The patient has had a functional and cognitive decline most noted over the last 6 months to year by his family report. The patient today recognizes his inability to recall events hand certain tasks. The patient himself becomes frustrated unless he is unable to recall certain activities such as becoming frustrated in completing the clock drawing test. The patient's family recognizes his underlying cognitive impairment and are attempting to assist the patient as best they can within the home. The patient's , Anastasiya, is looking for additional guidance and support within the home specifically around caregiving as well as management of the patient's diabetes mellitus. Impression and Recommendations - Palliative Care Impression: This is a 79-year-old man who has had a functional and cognitive decline over the last 6 months to 1 year with underlying cognitive impairment, Physical deconditioning, and unintentional weight loss. Palliative care to continue provide support for symptom management, exploration of goals of care and advance care planning. Recommendations/Counseling Done: 1. Physical deconditioning due to longstanding diabetes mellitus and congestive heart failure. The patient is at high risk for falls due to his underlying physical deconditioning and is unable to leave the home. Encouraged to use his walker and call for assistance from his family with ambulation. Request that home health physical therapy and occupational therapy work with the patient to reduce symptom burden from underlying condition, energy conservation techniques, and and adaptation within the home to improve independence and reduce caregiver burden on the patient's . 2. Diabetes mellitus type 2. Patient with recent increase in fasting blood glucose levels to a high of 275. No signs or symptoms of hypo-or hyperglycemia. Reviewed pathophysiology with the patient's and son regarding complications of longstanding diabetes in relation to medication management and potential need for increase of the patient's long-acting insulin, Lantus. At the present time continue metformin 1000 mg twice daily and Lantus 10 units injected subcutaneously nightly. Request that the patient's follow-up with the patient's PCP regarding review of his recent blood glucose monitoring for potential adjustment whether via phone or telemedicine visit. As the patient's feels overwhelmed regarding management of foods in relation to diabetes request that home health nursing assist with diabetic teaching. Reviewed avoidance of white, starchy foods as well as concentrated sugar products to reduce risk of elevated blood glucose levels. 3. Cognitive impairment. Noted short-term memory impairment and difficulty completing clock drawing test. Likely underlying dementia. Reviewed pathophysiology with patient's and son regarding dementia as a progressive, chronic course and to provide assistance for safety and care within the home. Would benefit from additional assistance for caregiving resources from home health mental health social worker. 4. Constipation. Due to sedentary lifestyle, decreased oral intake, and longstanding history. Strongly encourage patient's to initiate MiraLAX 17 g p.o. daily dissolved in 4 ounces of liquid as previously not initiated at last visit as the patient's has felt overwhelmed. 5. Advanced care planning. No POLST in the home. At last visit provided POLST that was blank and introduced concept. Patient's did not have D POA paperwork available as previously requested. Supportive listening provided. Palliative care to continue provide support for the patient in his home setting as it is not feasible for him to presently leave due to his underlying medical conditions. [id number]: It would be a taxing considerable effort for the patient to leave his home secondary to his cognitive impairments, congestive heart failure, diabetes mellitus type 2 longstanding history and history of frequent falls. Request physical therapy for strengthening program and evaluation for home safety. Training for caregivers, and equipment recommendations. Occupational therapy for strength training and energy conservation. Request home health nursing for diabetes education with patient's . Request medical social work for support for patient's and available community resources for caregiving support. Time Spent: F/u in 4-6 weeks or prn if new/worsening symptoms. Total time spent 55 minutes with greater than 50% of this spent in counseling and coordination of care with patient, and son, TJ; review of progression of dementia; examination of patient; and anticipatory guidance. Disclaimer: The chart note was formulated using voice recognition technology and unfortunately sound alike errors may occur.
== END 2020-08-05 15:16 | disposition home or self-care (01) ==
LOC: PC 15:15
PROVIDERS: ATTEND Nurse Practitioner Family
DX: Z51.5 Encounter for palliative care (principal); R41.89 Other symptoms and signs involving cognitive functions and awareness; R41.3 Other amnesia; E11.9 Type 2 diabetes mellitus without complications; R53.1 Weakness; I50.9 Heart failure, unspecified; I11.0 Hypertensive heart disease with heart failure; K59.09 Other constipation; Z79.4 Long term (current) use of insulin; Z79.899 Other long term (current) drug therapy; Z91.81 History of falling; R63.4 Abnormal weight loss; Z74.09 Other reduced mobility
CPT/HCPCS: 99349

== ENCOUNTER 2020-08-13 09:00 | Outpatient (CLI) | payer MEDICARE, OTHER ==
[2020-08-13 17:58] LABS: BILIRUBIN,URINE NEGATIVE (NEGATIVE); GLUCOSE, URINE (UA) NEGATIVE (NEGATIVE); KETONES,URINE (UA) NEGATIVE (NEGATIVE); LEUKOCYTE ESTERASE, URINE LARGE (NEGATIVE); NITRITE,URINE NEGATIVE (NEGATIVE); OCCULT BLOOD,URINE NEGATIVE (NEGATIVE); PH,URINE 6.5 PH (5.0-7.5); PROTEIN,URINE NEGATIVE (NEGATIVE); UROBILINOGEN,URINE 0.2 (NORMAL) E.U./dL (NORMAL)
[2020-08-13 17:59] LABS: BACTERIA,URINE Many /HPF (None Seen); CLARITY,URINE CLEAR (CLEAR); RBC,URINE None Seen /HPF (0-5); SQUAMOUS EPITHELIAL CELL,UR NONE SEEN (<= Few)
== END 2020-08-13 23:59 | disposition home or self-care (01) ==
LOC: LAB.R 09:00
PROVIDERS: ATTEND Internal Medicine
DX: R39.81 Functional urinary incontinence (principal); E11.40 Type 2 diabetes mellitus with diabetic neuropathy, unspecified; M62.81 Muscle weakness (generalized)
CPT/HCPCS: 81001; 81003; 87086; 87181

== ENCOUNTER 2020-09-11 14:15 | Outpatient (CLI) | payer MEDICARE, OTHER ==
--- NOTE | 2020-09-12 09:42 | CONSULTATION NOTE ---
Palliative Care Follow Up - Referral Referring Provider: Jeana Byrne PA-C Time of Visit: 9466-2482 Referral setting: Home Referral Reason: Cognitive Impairment/Advanced Care Planning - Information Sources Records reviewed: Previous records reviewed History/Review of Systems obtained from: Patient, Family (/SHARON, Anastasiya) Exam limitations: Clinical condition (STM impairment, [place]) - History of Present Illness Update Brief HPI Update: This is a 80-year-old man who was seen in follow-up today within his home with his , Anastasiya present for follow-up regarding cognitive impairment and advance care planning. The patient has had a progressive functional decline over the last year. He is receiving supplemental support from his and son, DEZ. The patient's son, DEZ moved in to his parents home approximately 1 year ago to provide additional assistance. DEZ defers to his mother in regards for direction for assistance. Anastasiya reports that her son has been "God send" and providing additional assistance as Anastasiya often becomes overwhelmed. , has been struggling with feeling overwhelmed and caregiver burden in making decisions. For example, she has not initiated MiraLAX for chronic constipation for the patient that has been discussed on 2 prior visits with this EMERGENCY ROOM PHYSICIAN ASSISTANT. Anastasiya has her own underlying health problems and she is seeking care and support. The patient and his have been working with home health nursing for management of his diabetes mellitus. His blood glucose levels recently have been ranging 1 47-2 2 1. No evidence of hypoglycemic events. The patient has cut down on his quantity of eating due to lack of interest. The has noted gradual weight loss but the patient is unable to stand independently on a scale and thus there is no recent weight. The patient has been motivated and has been working with home health physical therapy. He has not had any recent falls. It is unfortunate that the way his home is set up there are stairs to proceed to the restroom or the bedroom. The patient typically is able to manage the stairs with assistance from his or son who transport his walker for him. Otherwise, the patient spends the majority of his days sitting in his recliner in the living room. The patient is seen out of bed in his recliner, appears older than his stated age and slightly disheveled. No evidence of acute distress and offers up no acute concerns to be addressed today. denies change in medications and has not been taking Miralax daily as recommended. Past Medical History: Patient has a past medical history of hypertension, hyperlipidemia, type 2 diabetes mellitus, chronic constipation, BPH, incontinence, chronic hearing loss, depression, anxiety, insomnia, chronic back pain, and cognitive impairment. Social History - Living Situation Living arrangement: At home Living Situation: With family (, Anastasiya and son, Dez) Support System: Patient was adopted and grew up in [place], [place]. 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 He worked in [place] for [employer] for over 20 years in [place]. He met his , Anastasiya while he was in the and they have been for 56 years. Anastasiya reports that the patient always led a "fast lifestyle." They have 3 children, 2 daughters and 1 son who are all locally in the area. Medications/Allergies - Medications Home Medications: Ambulatory Orders Medication Instructions Recorded Confirmed Bisacodyl 10 mg PO DAILY PRN 08/28/16 08/28/16 Carvedilol [Coreg] 6.25 mg PO BID 08/28/16 07/29/20 Clopidogrel Bisulfate [Plavix] 75 mg PO DAILY 08/28/16 07/29/20 Escitalopram Oxalate [Lexapro] 20 mg PO DAILY 08/28/16 07/29/20 Insulin Glargine [Lantus] 10 units SQ DAILY 08/28/16 Pravastatin [Pravachol] 20 mg PO DAILY 08/28/16 07/29/20 Trazodone HCl 100 mg PO DAILY PRN 08/28/16 07/29/20 metFORMIN [Glucophage] 1,000 mg PO BID 08/28/16 07/29/20 Buspirone HCl 10 mg PO BID 07/29/20 07/29/20 Losartan Potassium 50 mg PO DAILY 07/29/20 07/29/20 Tamsulosin [Flomax] 0.4 mg PO DAILY 07/29/20 07/29/20 Trospium Chloride 20 mg PO BID 07/29/20 07/29/20 amLODIPine [Norvasc] 5 mg PO DAILY 07/29/20 07/29/20 polyethylene glycoL 3350 [Miralax] 17 gm PO DAILY 07/29/20 07/29/20 - Allergies Allergies/Adverse Reactions: Allergies Allergy/AdvReac Type Severity Reaction Status Date / Time Sulfa (Sulfonamide Allergy Unknown Verified 07/28/20 16:05 Antibiotics) Review of Systems - Constitutional Constitutional: reports: Weight loss (gradual, left MAC today 24cm). denies: Fever - Eyes Eyes: reports: Corrective lenses - Ears, Nose & Throat Ears, Nose & Throat: reports: Hearing loss. denies: Hearing aids - Cardiovascular Cardiovascular: denies: Chest pain, Edema - Respiratory Respiratory: denies: Wheezing - Gastrointestinal Gastrointestinal: reports: Constipation (chronic), Other (decreased appetite). denies: Vomiting - Genitourinary Genitourinary: reports: Frequency, Incontinence (intermittent). denies: Dysuria - Musculoskeletal Musculoskeletal: reports: Back pain, Assistive devices, Transfer issues - Neurological Neurological: reports: General weakness, Memory problems - Psychiatric Psychiatric: reports: Depression, Anxiety (uses cannabis sometimes in the evenings to help him sleep and calm his mood) - Endocrine Endocrine: reports: Diabetes type 2, Other (always feels cold) - Hematologic/Lymphatic Hematologic/Lymph: Other (denies recurrent infections) - All Other Systems All Other Systems: reports: Reviewed and negative (ROS supplemented by /DPOA, Anastasiya as patient is a poor historian due to cognitive impairment.) Physical Exam - Vital Signs Temperature: 36.4 C Pulse Rate: 72 O2 Saturation: 98 (on RA at rest) Blood Pressure: 162/78 (left arm cuff) - Physical Exam General Appearance: positive: No acute distress, Alert, Other (appears older than stated age, slightly dishelved) Eyes Bilateral: positive: Normal inspection ENT: positive: No signs of dehydration Neck: positive: Trachea midline Cardiovascular: positive: Regular rate & rhythm, Systolic murmur (+2/6 BOLA) Respiratory: positive: No respiratory distress, Breath sounds nml. negative: Wheezes Abdomen: positive: Non-tender, Soft, Nml bowel sounds Skin: positive: Dryness Extremities: positive: No pedal edema Neurologic/Psychiatric: positive: Oriented x3 (STM deficit), Weakness, Other (ambulates with walker with broad gait and flexed forward posture) Palliative Care - POLST Patient has POLST: Yes POLST Status: DNR, Comfort Measures Pain: No pain, Comment (history of back pain) Sleep: Variable sleep pattern Constipation: Yes, Intermittent constipation (has not started daily miralax as recommended on previous two visits) Performance Status: PPS 50% - Palliative Care Discussion: The patient has had a functional and cognitive decline most notably over the last 6 months to a year that has been reported by the family. The patient is presently working with home health physical therapy and has been motivated to perform exercises and work on instructions left by the therapist. Since initiat ion with physical therapy at home the patient has not had any falls and typically has a history of frequent falls in the past without major injury. There are adapt did devices within the home to assist the patient such as appropriate railings as well as the patient's bed being low to the floor. The patient's /DPOA, Anastasiya demonstrates evidence of caregiver fatigue. She has her own health problems and has been seeking care for herself and recently has established with a provider that she has developed a good rapport with and is beginning to note improvement in her overall wellbeing. However, her underlying stress and feeling overwhelmed and appear to impact her ability to follow through on recommendations and would continue to benefit from supportive listening and guidance. POLST reintroduced today and completed with the patient and his /DPAnastasiya ANGULO as DN AR with comfort measures, antibiotics to prolong life, and no artificial nutrition by tube. The patient's wishes to focus on care within the home with a transition to hospice services when medically appropriate to support the patient in his home setting to have a comfortable and dignified at home. The patient's has experience with hospice services in the past with her sister and again wishes this service for her when the time is appropriate. Impression and Recommendations - Palliative Care Impression: This is a 80-year-old [place] who has had a functional and cognitive decline due to underlying cognitive impairment, gradual unintentional weight loss, diabetes mellitus, and hypertension. The patient is presently working with home health services with nursing and physical therapy for strengthening, energy conservation, and management of his diabetes mellitus with diabetic education. The patient's demonstrates some evidence of caregiver fatigue and will continue to require supportive listening and encouragement. Palliative care to continue provide support for symptom management, advanced care planning and transition to hospice services when medically appropriate. Recommendations/Counseling Done: 1. Hypertension in the setting of history of coronary artery disease and congestive heart failure. Patient with noted elevated blood pressure of 162/78 today. Denies cardiac awareness. Is presently on Coreg 6.25 mg twice daily, losartan 50 mg daily, and amlodipine 5 mg daily. At this time, I would not recommend tighter control of blood pressure as patient is asymptomatic and tighter control could lead to increase syncope/fall risk with potential injury. Will continue to monitor blood pressure trends and determine if adjustment of antihypertensive medications is needed in the future. 2.Diabetes mellitus type 2. Blood with glucose trends reviewed today. No signs or symptoms of hypo or hyperglycemia. Continue Metformin 1000 mg twice daily and Lantus 10 units injected nightly. Continue to work with home health nursing for diabetic education. Goal hemoglobin A1c given the patient's advanced age is 7 to 8%. Continue to monitor. 3. Gradual weight loss, unintentional. The patient's desire for various foods wax and wane per the 's report. He continues to eat regular meals but has cut down on the quantity. The patient is unable to stand on a scale and left MAC obtained today at 24 cm. Continue to encourage grazing throughout the day. Continue to monitor weight loss trend by following MAC. 4. Cognitive impairment. Has demonstrated short-term memory impairment multifactorial with likely underlying lying dementia as well is hearing loss impacting cognition. On no disease modifying agents. Is homebound. Has support from his son, DEZ and his /DPOA Anastasiya. 5. Caregiver fatigue. The patient's /DPOAAnastasiya is his primary caregiver who has previous Occasions demonstrated caregiver fatigue due to her own underlying health problems and she can become easily overwhelmed impacting her recall of instructions. She has recently established with a new provider for herself and reports that she is feeling better and is receiving support from her son/DEZ. Empathetic listening provided today. We will continue to provide support for the patient's spouse. 6. Advanced care planning. LAURI reviewed with the patient and spouse/Anastasiya HERRERA at length today. LAURI completed as DN AR with comfort measures. The patient's is quite clear that she wishes to focus on comfort measures for the patient's and to transition to hospice services when it is appropriate. In the present setting it is not feasible for the patient to leave his home due to his underlying medical conditions and multiple stairs within the home impacting his ability to easily leave. [facility] home health services Time Spent: F/u 3 months or sooner if new/worsening symptoms with verbalizing understanding. Total time spent 60 minutes with greater than 50% of this spent in counseling and coordination of care with the patient and ; review of palliative and hospice philosophy; completion of POLST; examination of patient; review of symptom management and anticipatory guidance. Disclaimer: The chart note was formulated using voice recognition technology and unfortunately sound alike errors may occur.
== END 2020-09-11 14:16 | disposition home or self-care (01) ==
LOC: PC 14:15
PROVIDERS: ATTEND Nurse Practitioner Family
DX: Z51.5 Encounter for palliative care (principal); I11.0 Hypertensive heart disease with heart failure; I50.9 Heart failure, unspecified; I25.10 Atherosclerotic heart disease of native coronary artery without angina pectoris; E11.9 Type 2 diabetes mellitus without complications; R63.4 Abnormal weight loss; G31.84 Mild cognitive impairment of uncertain or unknown etiology; Z79.4 Long term (current) use of insulin; Z66 Do not resuscitate
CPT/HCPCS: 99350

== ENCOUNTER 2020-09-25 19:45 | Outpatient (CLI) | payer MEDICARE, OTHER | END 2020-09-25 19:46 | disposition short-term general hospital (02) | LOC: EMS 19:45 | PROVIDERS: ATTEND Surgery | DX: R41.0 Disorientation, unspecified (principal); L98.8 Other specified disorders of the skin and subcutaneous tissue | CPT/HCPCS: A0425; A0427 ==

== ENCOUNTER 2020-11-04 15:25 | Outpatient (CLI) | payer MEDICARE, OTHER ==
--- NOTE | 2020-11-04 18:22 | CONSULTATION NOTE ---
Palliative Care Follow Up - Referral Referring Provider: Jeana Byrne PA-C Time of Visit: 4903-7120 Referral setting: Home Referral Reason: Dementia with behavior/Advanced Care Planning - Information Sources Records reviewed: Previous records reviewed History/Review of Systems obtained from: Patient, Family (son, DEZ, daughter Davon and /DPOA, Anastasiya) Exam limitations: Clinical condition ([place], Dementia) - History of Present Illness Update Brief HPI Update: This is a 80-year-old man who was seen in follow-up today with his home with his , Anastasiya, son DEZ and daughter, Davon present due to underlying dementia with behavioral disturbance and advance care planning. Home health Physical therapy has been following the patient and reported concerns has the patient's spouse has had for emergency department visit in the last month and had caregiving concerns. This [employer] had reached out to the patient's daughter, Davon to make this visit today for advanced care planning. The patient's spouse, Anastasiya reports that she was developing caregiver fatigue which had resulted in her multiple emergency department visits. The patient's spouse, Anastasiya is improving as she has now relinquished some of the caregiving burden to her children with her daughter, Davon managing both their medications and their son Benedicto performing "the heavy lifting." Prior to her last visit to the emergency department the patient's spouse despite encouragement from her children and was not open to having assistance and shouldering the caregiving burden. The patient's family is noting that his dementia is progressing with his overall recall. He will consistent really repeat a question despite having an answer provided previously. He had also becoming verbally aggressive with his children who are attempting to provide assistance. He also had an episode when his daughter was attempting to encourage him to have assistance going to the restroom that he lashed out verbally and attempted to raise a fist at his daughter. He has not performed these behaviors with his spouse, Anastasiya but they do get into arguments. Anastasiya reports that she has never felt unsafe. The patient remains most cognizant during the hours of 3:58 PM. The family then notes that he becomes more confused and verbally aggressive in the evening hours. The patient is presently on citalopram 20 mg daily. It can become difficult to administer medications Outside of his morning and evening sets as he is used to this schedule and is not open to change. The patient's family also reports that the patient will "pick and choose who he listens to" of the family. The patient has not bathed time. He was not open to A home health aide that was offered as he prefers male aids and not female. His incontinence symptoms with behaviors have also gotten worse. There are times in the evening that he will get up out of his recliner in the living room and not go to the bathroom but will attempt to initiate voiding on the floor much to his 's distress. The patient's family attempts to read direct the patient with the use of urinal or assistance to the bathroom. The patient's daughter is making advancements in seeking additional help in the home for her parents. She has been working on a [employer] application and is looking for more direction. The patient is seen in his recliner chair in the living room, appears older than his stated age and slightly disheveled. No evidence of acute distress. When discussing advance care planning with the patient's family members he would intermittently interject as he wished to not be left out of the conversation. Past Medical History: Patient has a past medical history of hypertension, hyperlipidemia, type 2 diabetes mellitus, chronic constipation, BPH, incontinence, chronic hearing loss, depression, anxiety, insomnia, chronic back pain, and cognitive impairment. Social History - Living Situation Living arrangement: At home Living Situation: With family (, Anastasiya and son, Dez) Support System: Patient was adopted and grew up in [place], [place]. 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 He worked in [employer] for over 20 years in [place]. The patient and his , Anastasiya have been for 56 years. The patient and his have 3 children, 2 daughters and 1 son who are local in the area. The patient's son, DEZ resides in the home providing assistance to his parents with meal prep and "heavy lifting." The patient's daughter, Salo he resides in [place] and she is overseeing medical appointments and medication management. Davon works for the suicide prevention [employer]line. Both of the patient's children recognize the toll and fatigue that the caregiver burden was making upon their mother and are in agreement to not have this occur again moving forward. Medications/Allergies - Medications Home Medications: Ambulatory Orders Medication Instructions Recorded Confirmed Bisacodyl 10 mg PO DAILY PRN 08/28/16 08/28/16 Carvedilol [Coreg] 6.25 mg PO BID 08/28/16 07/29/20 Clopidogrel Bisulfate [Plavix] 75 mg PO DAILY 08/28/16 07/29/20 Insulin Glargine [Lantus] 10 units SQ DAILY 08/28/16 Pravastatin [Pravachol] 20 mg PO DAILY 08/28/16 07/29/20 Trazodone HCl 100 mg PO DAILY PRN 08/28/16 07/29/20 metFORMIN [Glucophage] 1,000 mg PO BID 08/28/16 07/29/20 Buspirone HCl 10 mg PO BID 07/29/20 07/29/20 Losartan Potassium 50 mg PO DAILY 07/29/20 07/29/20 Tamsulosin [Flomax] 0.4 mg PO DAILY 07/29/20 07/29/20 Trospium Chloride 20 mg PO BID 07/29/20 07/29/20 amLODIPine [Norvasc] 5 mg PO DAILY 07/29/20 07/29/20 polyethylene glycoL 3350 [Miralax] 17 gm PO DAILY PRN 07/29/20 07/29/20 Citalopram Hydrobromide [Celexa] 20 mg PO DAILY 11/04/20 11/04/20 QUEtiapine [SEROquel] 12.5 mg PO QPM 11/04/20 11/04/20 - Allergies Allergies/Adverse Reactions: Allergies Allergy/AdvReac Type Severity Reaction Status Date / Time Sulfa (Sulfonamide Allergy Unknown Verified 07/28/20 16:05 Antibiotics) Review of Systems - Constitutional Constitutional: reports: Weight loss (gradual, left MAC 09/2020 24cm), Other (appetite waxes and wanes and his foods choices change with his requests). denies: Fever - Eyes Eyes: reports: Corrective lenses - Ears, Nose & Throat Ears, Nose & Throat: reports: Hearing loss. denies: Hearing aids - Cardiovascular Cardiovascular: denies: Chest pain, Edema - Respiratory Respiratory: denies: Wheezing - Gastrointestinal Gastrointestinal: reports: Constipation (chronic, declines daily use of miralax), Other (decreased appetite) - Genitourinary Genitourinary: reports: Frequency, Incontinence (increasing episodes). denies: Dysuria - Musculoskeletal Musculoskeletal: reports: Back pain, Assistive devices, Transfer issues - Integumentary Integumentary: reports: Dryness - Neurological Neurological: reports: General weakness, Memory problems - Psychiatric Psychiatric: reports: Depression, Anxiety (uses cannabis sometimes in the evenings), Behavior disturbances - Endocrine Endocrine: reports: Diabetes type 2 - Hematologic/Lymphatic Hematologic/Lymph: Other (denies recurrent infections) - All Other Systems All Other Systems: reports: Reviewed and negative (ROS supplemented by /DPOA, Anastasiya and children, DEZ and Davon, as patient is a poor historian due to dementia) Physical Exam - Vital Signs Temperature: 36.3 C Pulse Rate: 63 O2 Saturation: 98 (on RA at rest) Blood Pressure: 145/62 (left wrist cuff) - Physical Exam General Appearance: positive: No acute distress, Alert, Other (appears older than stated age, slightly dishelved) Eyes Bilateral: positive: Normal inspection ENT: positive: No signs of dehydration Neck: positive: Trachea midline. negative: Lymphadenopathy (R), Lymphadenopathy (L) Cardiovascular: positive: Regular rate & rhythm, Systolic murmur (+2/6 BOLA) Respiratory: positive: No respiratory distress, Breath sounds nml Abdomen: positive: Non-tender, Soft, Nml bowel sounds Skin: positive: Dryness (generalized with dry skin visible on sweatshirt), Other (small epidermal cyst behind right ear without TTP or erythema) Extremities: positive: No pedal edema Neurologic/Psychiatric: positive: Oriented x3 (STM deficit), Weakness Palliative Care - POLST Patient has POLST: Yes POLST Status: DNR, Comfort Measures Performance Status: Requiring more cueing for assistance with dressing and use of the restroom. Increased episodes of urinary incontinence and underlying verbal and aggressive outbursts. PPS 50% - Palliative Care Discussion: The patient's family make note of continued functional and cognitive decline indicative of his underlying dementia. All parties recognize that this is a chronic, progressive course with someone who has dementia. However, the impact that the caregiver role will has had on the patient's spouse, Anastasiya in regards to her own health has been impactful. Anastasiya has come to a point that she is open and is accepting of help from her children in sharing the load of the caregiving burden for the patient. Of specific note, when the patient's becomes increasingly stressed or anxious she has increased forgetfulness and is unable to make her decisions well known. The patient's family notes the patient's increase in verbal outbursts and sundowning behaviors most specifically in the late afternoon and he would mikki efit from additional management of symptoms for his comfort level. As the patient is already on citalopram introduced the use of quetiapine initially in the evening weighing risks versus benefits and the patient's family wishes to optimize the patient's comfort, ease the caregiving burden to ultimately have the patient remain at home for his entire life for for as long as possible. The patient's daughter is looking into [employer] application and the family is open to forward thinking that if the patient's behaviors worsen and are not manageable than they would be open to facility placement but they wish to avoid this if at all possible. Impression and Recommendations - Palliative Care Impression: This is a 80-year-old man who has had a functional and cognitive decline due to underlying dementia with increased behavioral disturbances and caregiver fatigue with his spouse. The patient's Spouse is now open to shouldering the caregiving burden with her children and this has eased the strains that this role has had on her health. The patient's family is forward thinking in regards to possible caregiving scenarios such as facility placement however, they ultimately wish for the patient to be comfortable and to remain at home if at all possible. Given the patient's underlying verbal outbursts and sundowning behavior would benefit from introduction of low-dose quetiapine for these behaviors as well as for sleep. Palliative care to continue broad support for symptom management, advanced care planning and transition to hospice services when medically appropriate. Recommendations/Counseling Done: 1. Dementia with behavioral disturbances. Patient displays agitation and verbal outbursts with his family overseeing assistance with his caregiving needs that is not always redirectable. He is also demonstrating some sundowning behaviors in the late afternoon/early evening. Patient is presently on citalopram 20 mg daily which can provide benefit for underlying agitation and anxiety due to dementia. Introduced the use of quetiapine 12.5 mg before dinner that the patient would allow given the timing of his outbursts and symptoms but if this not achievable then may administer in the evening with his evening medications. Reviewed with patient spouse, son and daughter regarding black box warning Regarding quetiapine and potential side effects such as drowsiness as well as orthostatic hypotension and weighing risk versus benefit the family wishes to proceed with introduction of quetiapine. Advised that they likely titrate to 2-3 times daily based on patient's response and acceptance of administration moving forward. We will monitor effects of introduction of quetiapine. This is a chronic and progressive course which the family is aware of. On no disease modifying agents. Given the patient's advanced age and chronic comorbidities a gradual decline is expected. 2. Caregiver fatigue and burden. The patient's , Anastasiya has been the primary sole caregiver with support from their son up until recently when the patient's spouse had her own health concerns that were exacerbated by her caregiver burden. She is now allowing additional support and management of the caregiving needs of the patient and herself. Discussed the need for increased caregiving services within the home and the patient's daughter is exploring [employer] application and provided contact information for Angélica Toribio at [facility] as point of contact as well as for assistance with potential [facility] application. We will also make a request to [facility] with a referral for needs for [facility] to review and contact the patient's spouse for further screening. 3. Advance care planning. Patient has POLST in place as DN AR with comfort measures. Patient spouse, son, and daughter reiterate that they wish to focus on comfort measures within the patient's home with a transition to hospice services when it is appropriate. If it is not feasible for the patient to remain in his home setting due to behaviors that are not manageable due to his progression of dementia and the family is open to exploring facility placement however, they wish to avoid this if at all possible. Provided [place] of facilities [place] that provide care for reference and contact information for future planning. Hospice recommended to patient's spouse and daughter may [facility] for additional look up facilities and adult family homes. Supportive listening provided. [facility]. Time Spent: Follow-up 3 to 6 weeks or as needed. Total of 65 minutes spent with greater than 50% of this spent in counseling coordination of care with the patient, , son, and daughter; exploration of goals of care; advance care planning; review of symptom management; review of side effects of new medication quetiapine with risk versus benefit reviewed; and anticipatory guidance. Disclaimer: The chart note was formulated using voice recognition technology and unfortunately sound alike errors may occur.
== END 2020-11-04 15:26 | disposition home or self-care (01) ==
LOC: PC 15:25
PROVIDERS: ATTEND Internal Medicine
DX: Z51.5 Encounter for palliative care (principal); F03.91 Unspecified dementia, unspecified severity, with behavioral disturbance; G47.00 Insomnia, unspecified; I10 Essential (primary) hypertension; E11.9 Type 2 diabetes mellitus without complications; Z79.4 Long term (current) use of insulin; Z66 Do not resuscitate
CPT/HCPCS: 99350

== ENCOUNTER 2020-11-06 19:48 | Outpatient (CLI) | payer MEDICARE, OTHER ==
--- OUTSIDE RECORDS SUMMARY | 2020-11-13 00:54 | EXTERNAL MEDICAL SUMMARY RPT | Continuity of Care Document ---
:1940 Demographics Phone Unavailable Preferred Language Luxembourgish Marital Status Unknown Adventist Affiliation Unknown Race Unknown Ethnic Group Unknown Author Organization [facility] Address [address] [place] [address] Phone Care Team Providers Name Role Phone Hernandes Unavailable Unavailable Laursen Unavailable Unavailable Hernandes Unavailable Unavailable Problems date description facility Ex-smoker (finding) [facility] 2020-08-13 09:00 TYPE 2 DIABETES MELLITUS WITH [facility] DIABETIC NEUROPATHY, UNSP 2020-08-13 09:00 MUSCLE WEAKNESS (GENERALIZED) [facility] 2020-08-13 09:00 FUNCTIONAL URINARY INCONTINENCE [facility] Allergies date description facility [facility] Sulfa (Sulfonamide Antibiotics) [facility] PENICILLINS [facility] N[facility] IBUPROFEN [facility] GLUTEN [facility] Sulfa (Sulfonamide Antibiotics) [facility] BUPROPION [facility] GABAPENTIN [facility] METOCLOPRAMIDE [facility] SULFAMETHOXAZOLE-TRIMETHOPRIM [facility] TRAZODONE [facility] SULFA ANTIBIOTICS [facility] NO KNOWN ALLERGIES [facility] SHELLFISH [facility] Procedures date description facility 2020-09-25 00:00:00 [facility] date description facility 2020-09-25 00:00:00 [facility] date description facility 2020-11-11 00:00:00 Diagnosis [facility] date description facility 2020-11-11 00:00:00 [facility] date description facility 2020-11-11 00:00:00 [facility] date description facility 2020-11-11 00:00:00 [facility] date description facility 2020-11-11 00:00:00 [facility] date description facility 2020-11-11 00:00:00 [facility] date description facility 2020-11-11 00:00:00 [facility] date description facility 2020-11-11 00:00:00 General Physician [facility] Results Social History date description facility [id number] Ex-smoker (finding) [facility] Social History date description facility [id number] Ex-smoker (finding) [facility] date description facility [id number]
== END 2020-11-06 19:49 ==
LOC: EMS 19:48
PROVIDERS: ATTEND Surgery
DX: Z03.89 Encounter for observation for other suspected diseases and conditions ruled out (principal)

== ENCOUNTER 2020-11-11 16:50 | Outpatient (CLI) | payer MEDICARE, OTHER | END 2020-11-11 16:51 | disposition short-term general hospital (02) | LOC: EMS 16:50 | PROVIDERS: ATTEND Surgery | DX: R53.1 Weakness (principal); K59.00 Constipation, unspecified; R35.0 Frequency of micturition | CPT/HCPCS: A0425; A0427; A0888 ==

== ENCOUNTER 2020-11-26 14:55 | Outpatient (CLI) | payer MEDICARE, OTHER ==
--- NOTE | 2020-11-26 16:33 | CONSULTATION NOTE ---
Palliative Care Follow Up - Referral Referring Provider: Dr. Franco Hernandes/Jeana Byrne PA-C Time of Visit: [id number] Referral setting: Home Referral Reason: Chronic Constipation/Recent UTI with urinary incontience/Dementia - Information Sources Records reviewed: Previous records reviewed History/Review of Systems obtained from: Patient, Family (daughter, Davon and /Anastasiya HERRERA present) Exam limitations: Clinical condition (QUILEUTE and dementia) - History of Present Illness Update Brief HPI Update: This is a 80-year-old man who was seen in follow-up today within his home with his /Anastasiya HERRERA and daughter, Davon present due to dementia with behavioral disturbances, chronic constipation and strategies for urinary incontinence. The patient is being followed by home health physical therapy services. He was recently hospitalized for a urinary tract infection at [facility] from 11/11 to 11/13/2020 due to encephalopathy due to UTI was discharged on antibiotic therapy. The patient's daughter and reports that outside of being discharged on antibiotic therapy no other adjustments were made to the patient's medication regimen. Imaging while hospitalized noted chronic constipation which has been an ongoing issue for the patient and for the family to manage as he can be resistant to care and interventions. Since being discharged from the hospital he has been amenable to taking MiraLAX 17 g daily. If any additional bowel medication is utilized such as senna the patient has loose, uncontrolled stool multiple times throughout the day. He is amenable to trying prunes. He has urinary incontinence that is resulting in getting up in the middle night and using a urinal at the bedside. There are times despite now being agreeable to wearing overnight depends that he will get up and take his urine saturated depends and clothes off. His is having to preform laundry routinely. The family has fear that the patient will fall by doing these things independently. He is on trospium and tamsulosin for his OAB. The patient has had trouble outbursts and behavioral disturbances that are aggressive in nature typically in the early evening hours. On last evaluation he was initiated on 12.5 mg of quetiapine. The patient has been taking this medication when not inpatient and both the patient's daughter and spouse report that they have not noticed a improvement in his behavior since initiation. The family recently met with home health drug abuse social workerMarcela in regards to looking forward for facility placement. The [place] have not heard from them. The patient is seen in his recliner chair in the living room. Appears older than stated age and disheveled. No evidence of acute distress. Past Medical History: Patient has a past medical history of hypertension, hyperlipidemia, type 2 diabetes mellitus, chronic constipation, BPH, incontinence, chronic hearing loss, depression, anxiety, insomnia, chronic back pain, cognitive impairment. Social History - Living Situation Living arrangement: At home Living Situation: With family (, Anastasiya and son, Dez) Support System: Patient was adopted and grew up in [place], [place]. He was activity in the [employer] for 4 years. 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 The patient and his , Anastasiya have been for 56 years. They have a have 3 children, 2 daughters and 1 son who are local in the area. The patient's daughter, Davon resides in [place] is overseeing medical appointments and medication management. The patient's son, DEZ resides in the home with his parents and helps with meal prep and "heavy lifting". Medications/Allergies - Medications Home Medications: Ambulatory Orders Medication Instructions Recorded Confirmed Bisacodyl 10 mg PO DAILY PRN 08/28/16 08/28/16 Carvedilol [Coreg] 6.25 mg PO BID 08/28/16 07/29/20 Clopidogrel Bisulfate [Plavix] 75 mg PO DAILY 08/28/16 07/29/20 Insulin Glargine [Lantus] 10 units SQ DAILY 08/28/16 Pravastatin [Pravachol] 20 mg PO DAILY 08/28/16 07/29/20 Trazodone HCl 100 mg PO DAILY PRN 08/28/16 07/29/20 metFORMIN [Glucophage] 1,000 mg PO BID 08/28/16 07/29/20 Buspirone HCl 10 mg PO BID 07/29/20 07/29/20 Losartan Potassium 50 mg PO DAILY 07/29/20 07/29/20 Tamsulosin [Flomax] 0.4 mg PO DAILY 07/29/20 07/29/20 Trospium Chloride 20 mg PO BID 07/29/20 07/29/20 amLODIPine [Norvasc] 5 mg PO DAILY 07/29/20 07/29/20 polyethylene glycoL 3350 [Miralax] 17 gm PO QPM 07/29/20 07/29/20 Citalopram Hydrobromide [Celexa] 20 mg PO DAILY 11/04/20 11/04/20 QUEtiapine [SEROquel] 25 mg PO QPM 11/04/20 11/04/20 polyethylene glycoL 3350 [Miralax] 8.5 g PO DAILY 11/26/20 11/26/20 - Allergies Allergies/Adverse Reactions: Allergies Allergy/AdvReac Type Severity Reaction Status Date / Time Sulfa (Sulfonamide Allergy Unknown Verified 07/28/20 16:05 Antibiotics) Review of Systems - Constitutional Constitutional: reports: Other ( left MAC 09/2020 24cm). denies: Fever - Eyes Eyes: reports: Corrective lenses - Ears, Nose & Throat Ears, Nose & Throat: reports: Hearing loss. denies: Hearing aids, Dentures - Cardiovascular Cardiovascular: denies: Edema - Respiratory Respiratory: denies: Cough - Gastrointestinal Gastrointestinal: reports: Constipation (chronic, declines daily use of miralax), Other (decreased appetite). denies: Abdominal pain, Vomiting - Genitourinary Genitourinary: reports: Frequency, Incontinence, Nocturia. denies: Dysuria - Musculoskeletal Musculoskeletal: reports: Back pain, Assistive devices, Transfer issues - Integumentary Integumentary: reports: Dryness - Neurological Neurological: reports: General weakness, Memory problems - Psychiatric Psychiatric: reports: Depression, Anxiety (uses cannabis sometimes in the evenings), Behavior disturbances - Endocrine Endocrine: reports: Diabetes type 2 (HgA1C 7.6% while inpatient 11/2020) - Hematologic/Lymphatic Hematologic/Lymph: Recurrent infections (UTIs) - All Other Systems All Other Systems: reports: Reviewed and negative (ROS supplemented by /DPOA, Anastasiya and lencho Davon, as patient is a poor historian due to dementia) Physical Exam - Vital Signs Temperature: 36.1 C Pulse Rate: 65 O2 Saturation: 96 (on RA) Blood Pressure: 152/65 - Physical Exam General Appearance: positive: No acute distress, Alert, Other (appears older than stated age, dishelved) Eyes Bilateral: positive: PERRL ENT: positive: No signs of dehydration, Other (poor dentition and missing teeth) Neck: positive: Trachea midline Cardiovascular: positive: Regular rate & rhythm, Systolic murmur (+2/6 BOLA) Respiratory: positive: No respiratory distress, Breath sounds nml Abdomen: positive: Non-tender, Soft, Nml bowel sounds Skin: positive: Dryness Extremities: positive: No pedal edema Neurologic/Psychiatric: positive: Oriented x3 (STM deficit), Weakness, Other (gets annoyed when he cannot hear the conversation 2/2 masks due to COVID and his poor hearing) Palliative Care - POLST Patient has POLST: Yes POLST Status: DNR, Comfort Measures Constipation: Yes - Palliative Care Discussion: Patient has a longstanding history of chronic constipation and this was noted further when imaging while he was inpatient at [facility] due to encephalopathy due to UTI. As he is sensitive to many bowel regimens resulting in loose, frequent stools recommend increasing MiraLAX dosage and introduction of prunes and his daily diet. The patient himself is open to initiation of creams. Due to recent urinary tract infection the patient's family plan on discussing with his primary care provider initiation of prophylactic antibiotic therapy later this afternoon. Is getting harder to manage the patient's urinary incontinence especially overnight. The family has a cover for the mattress but the patient's is having to perform laundry on a routine basis and this is becoming overwhelming. Introduced the idea of use of incontinence pads that are washable. The patient has had a verbal outbursts and sundowning behaviors in the late afternoon and early evening with minimal to no noticed changes with initiation of quetiapine 12.5 mg in the evening. He also continues on citalopram and buspirone would benefit from further adjustment of his quetiapine. Impression and Recommendations - Palliative Care Impression: This is a 80-year-old man who has underlying dementia with behavioral disturbances, chronic constipation and urinary incontinence with overactive bladder. There was no noticed difference with initiation of quetiapine 12.5 mg in the early evening will increase to 25 mg in the evening after discussion with the patient's daughter and spouse/DPOA. The balance needs to be found to increase the patient's effectiveness for defecation in the setting of decades long chronic constipation. Palliative care to continue to provide support for symptom management, care coordination, and transition to hospice services when medically appropriate. Recommendations/Counseling Done: 1. Urinary incontinence with overactive bladder. Patient's underlying dementia is contributing to his ability to self-care. Continue medications as ordered by PCP for management of overactive bladder. Introduced to the patient's daughter and spouse obtaining washable incontinence pads to reduce frequency of laundry loads and potentially reduce the patient from getting up in the middle of the night due to to sensation of moisture. We will continue to monitor. 2. Chronic constipation. Longstanding history. Patient denies abdominal pain, nausea and vomiting. He is sensitive to stimulating medications as reported in the past. Increase MiraLAX to half a cap in the morning and 1 cap in the evening dissolved in 4 ounces of liquid. And also contributing factor is the patient refrains from adequately hydrating throughout the day as he wishes to limit his voiding frequency. Eventually may need to increase to MiraLAX 1 cap twice daily. Recommend a trial of 2 prunes per day as the patient was amenable to this dietary alteration. If above changes are not effective for more routine bowel movements the may consider introduction of routine lactulose. Continue to monitor. 3. Dementia with behavioral disturbances. Patient has displayed agitation and verbal outburst with his family and has demonstrated sundowning behaviors in the late afternoon/early evening. Presently on citalopram 20 mg daily. Introduction of quetiapine 12.5 mg before dinner/early evening has not provided any benefit for the patient's behavioral disturbances. Increase quetiapine to 25 mg in the late afternoon/early evening after purpose, dose and potential side effects reviewed with the patient's daughter and /DPOA with agreement. May need to further titrate quetiapine in the future moving forward. Given the patient's advanced age and chronic comorbidities a gradual decline is expected. 4. Advanced care planning. Patient has a POLST in place is DNR with comfort measures. Patient's family recently met with home health drug abuse social worker and they have a [place] application pending review and assessment and are optimistic that this will provide some further assistance for their caregiving needs. They are looking for potential facility placement for the patient In the future if they are not able to manage his behaviors and needs within the home. Time Spent: f/u via phone call in 1 week. CPT 54561 Plan of care reviewed with and /DPOA, Anastasiya at length and wound review of management of symptoms moving forward. In agreement with medication adjustments and dietary modifications. Questions answered and addressed. Disclaimer: The chart note was formulated using voice recognition technology and unfortunately sound alike errors may occur.
== END 2020-11-26 14:56 | disposition home or self-care (01) ==
LOC: PC 14:55
PROVIDERS: ATTEND Nurse Practitioner Family
DX: Z51.5 Encounter for palliative care (principal); N40.1 Benign prostatic hyperplasia with lower urinary tract symptoms; N39.498 Other specified urinary incontinence; N32.81 Overactive bladder; K59.09 Other constipation; F03.91 Unspecified dementia, unspecified severity, with behavioral disturbance; E11.9 Type 2 diabetes mellitus without complications; Z79.4 Long term (current) use of insulin; Z66 Do not resuscitate
CPT/HCPCS: 99349

== ENCOUNTER 2020-12-22 19:28 | Outpatient (CLI) | payer MEDICARE, OTHER | END 2020-12-22 19:29 | disposition left against medical advice (07) | LOC: EMS 19:28 | DX: Z03.89 Encounter for observation for other suspected diseases and conditions ruled out (principal) ==

== ENCOUNTER 2020-12-25 15:10 | Outpatient (CLI) | payer MEDICARE, OTHER ==
--- NOTE | 2020-12-25 18:16 | CONSULTATION NOTE ---
Palliative Care Follow Up - Referral Referring Provider: Dr. Franco Hernandes/Jeana Byrne PA-C Time of Visit: [id number] Referral setting: Home Referral Reason: Low back and left hip pain/Dementia with behavior/Anxiety - Information Sources Records reviewed: Previous records reviewed History/Review of Systems obtained from: Patient, Family (/DPOA, Anastasiya and daughter, Davon) Exam limitations: Clinical condition (POARCH and advanced dementia) - History of Present Illness Update Brief HPI Update: This is a 80-year-old man who was seen in follow-up today within his home with his /DPOA Anastasiya and daughter, Davon present due to approach with behavioral disturbances, anxiety, worsening lower back and left hip pain. The patient is being followed by home health physical therapy services. He is reporting increased chronic lower back pain that "does not go away." He has difficulty turning in bed and rising from bed due to lower back pain. He has a kyphotic posture and is unable to stand upright and despite the use of his walker. At times he will report his left hip giving out on him. His will administer ibuprofen up to 2 times a day although, not every day for the last several months with some noted improvement. However, in recent weeks this seems to have progressed and he is reporting increased pain and he is unable to sleep through the night. As per oxycodone and hydrocodone in the past without adverse effects per the 's report. He continues to have difficulty managing his bowel movements. On last evaluation recommended to the and daughter to increase MiraLAX administration. However, the patient due to his decreased mobility has difficulty THROAT: No pharyngeal injection, exudates, or tonsillar hypertrophy. Airway is patent. Failure of his home with stairs to the bathroom, ambulating in time and rules out in fecal in continence intermittently. This is an extreme embarrassment for the patient and he is reluctant to allow his son or daughter to assist with pericare if it is such an event occurs. They also found in the past use of senna that this also resulted in "explosive diarrhea." He has initiated taking prunes and this has been effective in something that he enjoys. The patient's and daughter both wish to review the patient's medications today as they wish to focus on comfort and reduction of polypharmacy if at all possible. The introduction of quetiapine has assisted with the patient's underlying sundowning behaviors, as well as verbal outbursts in the early evening hours. He is more easily directable per the 's report. He is no longer anxious or frustrated since initiating quetiapine which she is presently on 20 mg nightly. He still displays evidence of being "edgy and irritable" intermittently in the evenings but is no longer hostile. The patient's spouse and daughter report that his cognitive recollection is worsening. He is living "moment to moment" and if asked a direct question about preferences he is unable to answer and is looking more towards his Anastasiya to determined what he is supposed to do. This includes meal preferences and want to go to bed. The patient is seen in his recliner chair in the living room. Appears older than stated age disheveled. No evidence of acute distress. Past Medical History: Patient has a past medical history of hypertension, hyperlipidemia, type 2 diabetes mellitus, chronic constipation, BPH, incontinence, chronic hearing loss, depression, anxiety, insomnia, chronic back pain, cognitive impairment. Social History - Living Situation Living arrangement: At home Living Situation: With family (, Anastasiya and son, Dez) Support System: Patient was adopted and grew up in [place], [place]. He was activity in the [employer] for 4 years. 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 The patient and his , Anastasiya have been for almost 57 years. They have a have 3 children, 2 daughters and 1 son who are local in the area. The patient's daughter, Davon resides in [place] is overseeing medical appointments and medication management. The patient's son, DEZ resides in the home with his parents and helps with meal prep and "heavy lifting". They had an interview for [employer] program today and if background check is approved will receive 139 hours of assistance. [facility] application is still pending after submission. Medications/Allergies - Medications Home Medications: Ambulatory Orders Medication Instructions Recorded Confirmed Bisacodyl 10 mg PO DAILY PRN 08/28/16 08/28/16 Carvedilol [Coreg] 6.25 mg PO BID 08/28/16 07/29/20 Clopidogrel Bisulfate [Plavix] 75 mg PO DAILY 08/28/16 07/29/20 Insulin Glargine [Lantus] 10 units SQ DAILY 08/28/16 Trazodone HCl 50 mg PO .EVERY OTHER NIGHT MDD x7 08/28/16 07/29/20 then d/c metFORMIN [Glucophage] 1,000 mg PO BID 08/28/16 07/29/20 Buspirone HCl 10 mg PO DAILY MDD x7 then d/c 07/29/20 07/29/20 Losartan Potassium 50 mg PO DAILY 07/29/20 07/29/20 Tamsulosin [Flomax] 0.4 mg PO DAILY 07/29/20 07/29/20 Trospium Chloride 20 mg PO BID 07/29/20 07/29/20 amLODIPine [Norvasc] 5 mg PO DAILY 07/29/20 07/29/20 polyethylene glycoL 3350 [Miralax] 8.5 gm PO .EVERY OTHER DAY 07/29/20 07/29/20 Citalopram Hydrobromide [Celexa] 20 mg PO DAILY 11/04/20 11/04/20 QUEtiapine [SEROquel] 50 mg PO QPM 11/04/20 11/04/20 polyethylene glycoL 3350 [Miralax] 8.5 g PO DAILY 11/26/20 11/26/20 Hydrocodone/Acetaminophen 0.5 tab PO Q8H PRN 12/25/20 12/25/20 [Hydrocodone-Acetamin 5-300 mg] cephALEXin [Keflex] 250 mg PO DAILY 12/25/20 12/25/20 - Allergies Allergies/Adverse Reactions: Allergies Allergy/AdvReac Type Severity Reaction Status Date / Time Sulfa (Sulfonamide Allergy Unknown Verified 12/25/20 20:49 Antibiotics) Review of Systems - Constitutional Constitutional: reports: Other ( left MAC 09/2020 24cm). denies: Fatigue (not taking naps during the day), Fever - Eyes Eyes: reports: Corrective lenses - Ears, Nose & Throat Ears, Nose & Throat: reports: Hearing loss. denies: Hearing aids, Dentures - Cardiovascular Cardiovascular: denies: Chest pain, Edema - Respiratory Respiratory: denies: Cough - Gastrointestinal Gastrointestinal: reports: Constipation (chronic, presently not receiving miralax daily as previously educated and is having a bowel movement every 5-7 days and it will be "explosive" at times), Other (decreased appetite). denies: Abdominal pain, Vomiting - Genitourinary Genitourinary: reports: Frequency, Incontinence, Nocturia. denies: Dysuria - Musculoskeletal Musculoskeletal: reports: Back pain (denies numbness/tingling of extremities), Joint pain, Assistive devices, Transfer issues, Other (left hip pain, see HPI) - Integumentary Integumentary: reports: Dryness - Neurological Neurological: reports: General weakness, Memory problems. denies: Dizziness - Psychiatric Psychiatric: reports: Depression, Anxiety (uses cannabis in the evenings), Behavior disturbances (imrpoved with quetipaine) - Endocrine Endocrine: reports: Diabetes type 2 (HgA1C 7.6% while inpatient 11/2020) - Hematologic/Lymphatic Hematologic/Lymph: reports: Recurrent infections (UTIs started on keflex 250mg daily on 11/26/2020) - All Other Systems All Other Systems: reports: Reviewed and negative (ROS supplemented by /DPOA, Anastasiya and lencho Casasie, as patient is a poor historian due to dementia) Physical Exam - Vital Signs Temperature: 36.5 C Pulse Rate: 71 O2 Saturation: 98 (on RA) Blood Pressure: 158/72 (left arm) - Physical Exam General Appearance: positive: No acute distress, Alert, Other (appears older than stated age, dishelved) Eyes Bilateral: positive: Normal inspection ENT: positive: No signs of dehydration, Other (poor dentition and missing teeth) Neck: positive: Trachea midline Cardiovascular: positive: Regular rate & rhythm, Systolic murmur (+2/6 BOLA) Respiratory: positive: No respiratory distress, Breath sounds nml. negative: Rales Abdomen: positive: Non-tender, Soft, Nml bowel sounds, Obese. negative: Guarding Skin: positive: Dryness Extremities: positive: No pedal edema, Other (Kyphotic posture; +DJD changes to b/l hands; at appx L4-L5 reports discomfort but not to palpation. 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), Weakness, Flat affect, Other (Defers to his for assistance with answering questions) Palliative Care - POLST Patient has POLST: Yes POLST Status: DNR, Comfort Measures Pain: Pain worsening (impacting his sleep and ability to ambulation to his lower back and left hip) Tiredness/Fatigue: Mild (1-3) Drowsiness/Sedation: None Anorexia: Mild (1-3) (impaired due to dementia as he cannot recall what he enjoys regarding his meal choices) Anxiety: None (improved) Sleep: Sleeps poorly (due to pain) Constipation: Yes (chronic constipation) - Palliative Care Discussion: Patient continues to have chronic constipation which is a longstanding history and has been sensitive to bowel regimen in the past resulting in loose, frequent stools with fecal incontinence due to his impaired mobility. Gently encouraged the patient and his spouse to utilize half a cup of MiraLAX every other day for constipation dissolved in 4 to 8 ounces of liquid and out alternative days to u tilize no more than 2 prunes and will titrate from there. The patient's family is very clear that they wish to focus on comfort and quality of life versus quantity. They wish the patient to remain within the home setting for as long as possible and if it becomes too difficult for them to manage within the home environment and then the family would look towards placing the patient in a facility hopefully, with the assistance of [facility] through Medicaid. They recognize the patient's discomfort due to his lower back pain and left hip, which is intermittently giving out on him and he is not a surgical candidate resulting in impaired sleep and increased irritability. Discussed introduction of hydrocodone 5 mg/acetaminophen 325 mg to take half a tablet every 8 hours as needed for pain and if not effective in 1 hour to take an additional half tablet as a starting point recognizing that this may need to be titrated further and balanced with the patient's constipation. The family recognizes that opioids have a constipating effect and we need to stay on top of the patient's constipation but recognizing the need to optimize his pain control as [id number] pain medications are no longer effective. As the patient's underlying anxiety is presently controlled with recent increases in quetiapine and the family's desire to reduce polypharmacy will gradually reduce trazodone and BuSpar for discontinuation. Reviewed additional medications with her purposes elaborated and explained in context to optimize the patient's comfort level. Impression and Recommendations - Palliative Care Impression: This is a 80-year-old man with underlying dementia with behavioral disturbances, chronic constipation, with worsening chronic lower back and left hip pain. He has had improvement of his underlying anxiety and behavioral disturbances and would benefit from further dose adjustment of quetiapine to 50 mg in the evening for outbursts and irritability. Continue to titrate the patient's bowel regimen to find a balance for adequate defecation recognizing that his mobility is impacting his control. Introduced use of hydrocodone 5 mg/acetaminophen 325 mg as a synergistic effect and to optimize the patient's comfort and improve his functional status through pain management. Palliative care to continue to provide support for symptom management, care coordination and a transition to hospice services when medically appropriate. Recommendations/Counseling Done: 1. Chronic constipation. Longstanding history. Patient denies abdominal pain, nausea and vomiting. He has been sensitive to stimulating medications in the past. Reintroduced the use of MiraLAX and given patient's response would recommend half a cap (8.5 g (every other day for constipation dissolved in 48 ounces of liquid. When alternative days from the MiraLAX would have the patient consume prunes approximately 2/day for bowel regulation. Discussed the use of MiraLAX and senna and dosing titration with the patient's and daughter for an alternate goal have a bowel movement every 3 to 4 days given the patient's longstanding history of constipation. Also recognizing, that the patient's decreased physical function is impacting his ability to ambulate in a timely manner to the bathroom. 2. Anxiety and depression. Presently controlled after recent increase in quetiapine to 25mg nightly. Given family's as well as the patient's to deprescribe where possible will gradually discontinue buspar. Recommend d/c buspar in the evening. Continue busapr 10mg in the AM for 7days then discontinue. Continue citralopram 20mg daily as ordered. Supportive listening provided. 3. Insomnia. Long standing history. Trazodone is no longer effective and will gradually discontinued. Decrease trazodone to 50mg every other night x 7 nights then discontinue. Worsening chronic lower back and left hip are likely contributing to the patient's insomnia. See chronic low back pain and left hip pain for further details. 4. Chronic left hip pain due to OA and lower back pain. Presents with increased discomfort and inability to sleep due to pain and would benefit from additional pain management to optomize comfort. Counseling provided regarding pain management, and safety. Reviewed only one provider for opioid therapy and one pharmacy moving forward and both /DPOA and daughter verbalized understanding and agreement. Initiate hydrocodone 5mg/acetaminophen 325mg take 1/2 tablet every 8 hours as needed for pain and if not effective in 1 hour may take an additional 1/2 tablet for total of 1 tablet. Introduced that this is a starting point for the patient's pain management and set forth expectations. Discussed utilizing the hydrocodone 5mg/acetaminophen 325mg 1/2 tab as trial before bed due to the patient's insomnia due to pain with understanding verbalized. reviewed purpose, dose and side effects of the new medication and specifically addressed the need to optomize a bowel regimen for consitpation as the patient is at increased risk with opioid therapy with understanding verbalized. Continue to monitor functional response and adjust pain regimen accordingly. Fall precuations. Patient is currently supported by home health physical therapy with the goal to improve functional status and safety. 5.Dementia with behavioral disturbances. Patient has had a reduction in his agitation and verbal outburst with his family as well as his sundowning behaviors in the late afternoon/early evening. Presently on citalopram 20 mg daily. Given that the patient's has some evidence of irritability and sundowning behavior will increase quetiapine to 50 mg in the late afternoon/early evening with dose adjustment with reviewed with patient's daughter and /DPOA who are both in agreement. Given the patient's advanced age and chronic comorbidities a gradual decline is expected. CC: Home Health PT Total time spent 60 minutes with greater than 50% of this spent in counseling and coordination of care with patient, daughter Davon and /DPOA Anastasiya; review of all the patient's medications reflecting on function and purpose and deprescribing where possible at this time; pain management; examination of patient; supportive listening; review of pain and symptom management and anticipatory guidance. Disclaimer: The chart note was formulated using voice recognition technology and unfortunately sound alike errors may occur.
== END 2020-12-25 15:11 | disposition home or self-care (01) ==
LOC: PC 15:10
PROVIDERS: ATTEND Nurse Practitioner Family
DX: Z51.5 Encounter for palliative care (principal); K59.09 Other constipation; F41.9 Anxiety disorder, unspecified; F32.9 Major depressive disorder, single episode, unspecified; M16.12 Unilateral primary osteoarthritis, left hip; M54.5 Low back pain; G89.29 Other chronic pain; F03.91 Unspecified dementia, unspecified severity, with behavioral disturbance; E11.9 Type 2 diabetes mellitus without complications; Z79.4 Long term (current) use of insulin; Z66 Do not resuscitate
CPT/HCPCS: 99350

== ENCOUNTER 2021-01-04 07:41 | Outpatient (CLI) | payer MEDICARE, OTHER | END 2021-01-04 07:42 | disposition short-term general hospital (02) | LOC: EMS 07:41 | DX: R53.1 Weakness (principal); R53.83 Other fatigue | CPT/HCPCS: A0425; A0429 ==

== ENCOUNTER 2021-01-21 15:10 | Outpatient (CLI) | payer MEDICARE, OTHER ==
--- NOTE | 2021-01-21 19:04 | CONSULTATION NOTE ---
Palliative Care Follow Up - Referral Referring Provider: Dr. Franco Hernandes/Jeana Byrne PA-C Time of Visit: 8899-5542 Referral setting: Home Referral Reason: Constipation/Dementia with behavior/Anxiety - Information Sources Records reviewed: Previous records reviewed History/Review of Systems obtained from: Patient, Family (/DPOA, Anastasiya and daughter, davon) Exam limitations: Clinical condition (CHINIK and advanced dementia) - History of Present Illness Update Brief HPI Update: This is a 80-year-old man who was seen in follow-up today within his home with his /DPOA Anastasiya and daughter Davon present due to dementia with behavioral disturbances, anxiety, and constipation. The patient is being followed by home health physical therapy services. The patient has a longstanding history of anxiety. He continues on citalopram 20 mg daily. He has slowly titrated off BuSpar as well as trazodone. Neither of which were effective in relieving his symptoms and adding to his pill burden. The patient very much feels like he is taking "too many medications" and wishes to have a reduction in his medication burden. Since BuSpar and trazodone have discontinued been discontinued there have not been increased anxiety episodes. The patient is presently on quetiapine 50 mg in the evening. He continues to have irritability and outbursts since increasing quetiapine to 50 mg this has reduced in frequency and the patient at times will take a pause to think before and acting on his actions. He is 1 not to complain or want to take pills. However, he has chronic lower back pain and will have difficulty arising especially from his present recliner chair. The family is looking to obtain a new recliner that is easy for the patient to get out of that is not a lift assist as he would be unable to utilize the controls. He does have hydrocodone/acetaminophen available for use for pain. When offered, the patient will accept the pain medication and the notes that he will have improvement in his body language and ques, although he will not perceive this. The patient himself presently denies pain. The patient has a longstanding history of constipation. Earlier this month the patient was admitted for weakness at [facility] and had evidence of further issues with constipation. We continue to titrate his bowel regimen. He is now on MiraLAX 17 g daily, Colace 250 mg nightly with prunes. He is now having a bowel movement approximately every 3 days. The bowel movements are reported as soft and the patient is not straining. He does have available lactulose to use if he does not have a bowel movement every 3 days. As the 15 mL dose was too much causing frequent episodes of diarrhea recommend did to the patient and daughter having the dose of lactulose for future use. The goal is to not have the patient be without a bowel movement for more than 3 days. His history can be not having a bowel movement for even up to a week. Patient denies nausea and vomiting. The patient is having a decreased oral intake. He does not refer recall foods that he used to like. When offered different options for meals he cannot make a decision to his underlying dementia. He is fairly consistent about using his walker with ambulation. The patient is seen in his recliner chair in the living room. He then requested to lie down and was assisted by his daughter with the use of his walker to his bedroom. He had a navigate down 3 stairs with the use of his walker. He has a shuffling gait with evidence of gait ataxia and kyphotic posture. Past Medical History: Patient has a past medical history of hypertension, hyperlipidemia, type 2 diabetes mellitus, chronic constipation, BPH, incontinence, chronic hearing loss, depression, anxiety, insomnia, chronic back pain, cognitive impairment. Social History - Living Situation Living arrangement: At home Living Situation: With family (, Anastasiya and son, Dez) Support System: Patient was adopted and grew up in [place], [place]. The patient and his , Anastasiya have been for almost 57 years. They have a have 3 children, 2 daughters and 1 son who are local in the area. The patient's daughter, Davon resides in [place] is overseeing medical appointments and medication management. The patient's son, DEZ resides in the home with his parents and provides help. They have completed the [employer] application last month but have not heard anything regarding moving forward with caregiving assistance. Medications/Allergies - Medications Home Medications: Ambulatory Orders Medication Instructions Recorded Confirmed Bisacodyl 10 mg PO DAILY PRN 08/28/16 08/28/16 Carvedilol [Coreg] 6.25 mg PO BID 08/28/16 07/29/20 Clopidogrel Bisulfate [Plavix] 75 mg PO DAILY 08/28/16 07/29/20 Insulin Glargine [Lantus] 10 units SQ DAILY 08/28/16 metFORMIN [Glucophage] 1,000 mg PO BID 08/28/16 07/29/20 Losartan Potassium 50 mg PO DAILY 07/29/20 07/29/20 Tamsulosin [Flomax] 0.4 mg PO DAILY 07/29/20 07/29/20 Trospium Chloride 20 mg PO BID 07/29/20 07/29/20 amLODIPine [Norvasc] 5 mg PO DAILY 07/29/20 07/29/20 Citalopram Hydrobromide [Celexa] 20 mg PO DAILY 11/04/20 11/04/20 QUEtiapine [SEROquel] 75 mg PO QPM 11/04/20 11/04/20 polyethylene glycoL 3350 [Miralax] 8.5 g PO DAILY 11/26/20 11/26/20 Hydrocodone/Acetaminophen 0.5 tab PO Q8H PRN 12/25/20 12/25/20 [Hydrocodone-Acetamin 5-300 mg] cephALEXin [Keflex] 250 mg PO DAILY 12/25/20 12/25/20 Docusate Sodium [Dss] 1 cap PO DAILY 01/09/21 01/09/21 Lactulose 7.5 ml PO DAILY PRN MDD if no BM 01/09/21 01/09/21 in 3 days - Allergies Allergies/Adverse Reactions: Allergies Allergy/AdvReac Type Severity Reaction Status Date / Time Sulfa (Sulfonamide Allergy Unknown Verified 12/25/20 20:49 Antibiotics) Review of Systems - Constitutional Constitutional: reports: Poor appetite, Weight loss, Other ( left MAC 09/2020 24cm). denies: Fever - Eyes Eyes: reports: Corrective lenses - Ears, Nose & Throat Ears, Nose & Throat: reports: Hearing loss. denies: Hearing aids - Cardiovascular Cardiovascular: denies: Chest pain, Edema - Respiratory Respiratory: denies: Wheezing - Gastrointestinal Gastrointestinal: reports: Constipation (chronic, see HPI), Other (decreased appetite, see HPI). denies: Abdominal pain, Vomiting - Genitourinary Genitourinary: reports: Frequency, Incontinence, Nocturia. denies: Dysuria - Musculoskeletal Musculoskeletal: reports: Back pain (denies numbness/tingling of extremities), Joint pain, Assistive devices, Transfer issues - Integumentary Integumentary: reports: Dryness - Neurological Neurological: reports: General weakness, Memory problems. denies: Dizziness - Psychiatric Psychiatric: reports: Depression, Anxiety (uses cannabis in the evenings), Behavior disturbances (imrpoved with quetipaine, see hPI) - Endocrine Endocrine: reports: Diabetes type 2 (HgA1C 7.6% while inpatient 11/2020) - Hematologic/Lymphatic Hematologic/Lymph: reports: Recurrent infections (UTIs started on keflex 250mg daily on 11/26/2020) - All Other Systems All Other Systems: reports: Reviewed and negative (ROS supplemented by /DPOA, Anastasiya and lencho Mays, as patient is a poor historian due to dementia) Physical Exam - Vital Signs Temperature: 36.6 C Pulse Rate: 77 O2 Saturation: 98 (onRA) Blood Pressure: 143/82 (left wrist) - Physical Exam General Appearance: positive: No acute distress, Alert, Other (appears older than stated age, dishelved, had a haircut today by his daughter) Eyes Bilateral: positive: Normal inspection ENT: positive: No signs of dehydration, Other (poor dentition and missing teeth) Neck: positive: Trachea midline Cardiovascular: positive: Regular rate & rhythm, Systolic murmur (+2/6 BOLA) Respiratory: positive: No respiratory distress, Breath sounds nml, Diminished in bases Abdomen: positive: Non-tender, Soft, Nml bowel sounds, Obese Skin: positive: Dryness Extremities: positive: No pedal edema, Other (Kyphotic posture; +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 He has utilize lactulose once for not having a bowel movement after 3 days with a significant response and therefore would half the dose of the lactulose moving forward. He does continue to perseverate regarding the frequency of his bowel movements. The family of the patient is recognizing that he is having increased cognitive deficits and this is also impacting his appetite with reported weight loss perceived. The patient is offered various options during meals time but is unable to often make a decision. When he is consuming his meals he often will not finish or is not interested. The family wishes to continue to weigh benefits versus burdens regarding treatment options, most specifically in regards to hospitalization. Ideally, they wish to focus on comfort measures within the home environment and avoid facility placement for as long as possible. They recognize due to the coronavirus pandemic and facility restrictions they would not be able to visit the patient if he were to be institutionalized therefore, they have been pursuing avenues for additional caregiving support within the home. They are still awaiting [facility] notification regarding that application as well as final approval regarding the patient's [place] [facility] application for caregiving support. Impression and Recommendations - Palliative Care Impression: This is a 80-year-old man with underlying dementia with behavioral disturbances, chronic constipation and underlying anxiety. The patient would benefit from further dose adjustment of his quetiapine to 75 mg in the evening due to his dementia with behavioral disturbances due to outbursts and irritability. His bowel movements are presently controlled with the goal every 3 days with the use of lactulose available if no bowel movement in 3 days. Palliative care to continue to divide support for symptom management, care coordination and a transition to hospice services when medically appropriate. Recommendations/Counseling Done: 1. Chronic constipation. Longstanding history. Patient is sensitive to stimulating medications as reported in the past. Continue MiraLAX 17 g daily dissolved in 4 to 8 ounces of liquid. Continue the use of prune supplementation for bowel regulation. Continue Colace 250 mg nightly. Use lactulose 10 mg / 15 mL dose of 7.5 mL approximately 1 teaspoon every 3 days if there is no bowel movement reeducated today with the patient's and daughter. As the patient perseverates regarding his bowel movements recommended obtaining a calendar and placing a medication technician the date that the patient has a bowel movement for ease of visualization for the patient and calming his anxiety and fears revolving around this. Next 2. Anxiety and depression. Has done well since discontinuation of trazodone and BuSpar with his underlying anxiety and depression. Continue citalopram 20 mg daily as ordered. Increasing quetiapine to 75 mg nightly due to dementia with behavioral disturbances as described below. Continue to monitor. 3. Insomnia. Longstanding history. Trazodone was no longer effective and has been discontinued. Patient continues to utilize cannabis. Would expect increasing dose of quetiapine to have sedative properties and this was reviewed with the patient's and daughter. Continue to monitor. Fall precautions. 4. Dementia with behavioral disturbances. All of the patient has had a reduction in his overall agitation and verbal outbursts with his sundowning behaviors this does still continue. Will increase quetiapine to 75 mg nightly with new Rx for quetiapine 25 mg of 5050 mg tablets sent to [facility]. Continue citalopram 20 mg daily. Reviewed purpose, dose and side effects of quetiapine with the patient's daughter and /DPOA with understanding verbalized. Given the patient's advanced age, and chronic comorbidities a gradual decline is expected. 5. Protein calorie malnutrition due to dementia. Patient has had reported weight loss per family report. We will need to obtain left MAC at next evaluation. Weight loss and decreased appetite is not unexpected due to advancement of dementia. Continue to encourage foods that the patient finds pleasurable. May introduce milkshakes in the evening for extra calories. May also utilize Pea protein powder if the patient is open to the texture to maintain weight as he will not consume Glucerna or Ensure. 6. Advanced care planning. Patient has POLST in place as DN AR with supportive measures. The patient's family wishes to avoid facility placement for as long as possible. They recognize at the patient is having decline due to his underlying advancement of his dementia. They are optimistic that they will have approval from [place] for caregiving options within the home environment. They are open to hospice services when the time comes and gently introduced the role of hospice services today. CC: Home Health PT Total time spent 50 minutes with greater than 50% of this spent in counseling and coordination of care with patient, /DPOA and daughterDavon; review of progression of dementia; supportive listening; examination of patient; review of pain and symptom management and anticipatory guidance. Disclaimer: The chart note was formulated using voice recognition technology and unfortunately sound alike errors may occur.
== END 2021-01-21 15:11 | disposition home or self-care (01) ==
LOC: PC 15:10
PROVIDERS: ATTEND Nurse Practitioner Family
DX: Z51.5 Encounter for palliative care (principal); K59.00 Constipation, unspecified; F41.9 Anxiety disorder, unspecified; F32.9 Major depressive disorder, single episode, unspecified; G47.00 Insomnia, unspecified; F03.91 Unspecified dementia, unspecified severity, with behavioral disturbance; E46 Unspecified protein-calorie malnutrition; E11.9 Type 2 diabetes mellitus without complications; Z79.84 Long term (current) use of oral hypoglycemic drugs; Z66 Do not resuscitate
CPT/HCPCS: 99349

== ENCOUNTER 2021-02-11 15:00 | Outpatient (CLI) | payer MEDICARE, OTHER ==
--- NOTE | 2021-02-11 16:33 | CONSULTATION NOTE ---
Palliative Care Follow Up - Referral Referring Provider: Dr. Franco Hernandes/Jeana Byrne PA-C Time of Visit: [id number] Referral setting: Home Referral Reason: Dementia with behavior/Depression/Constipation - Information Sources History/Review of Systems obtained from: Patient, Family (/DPOA Anastasiya and daughter, Davon) Exam limitations: Clinical condition ([place] and advanced dementia) - History of Present Illness Update Brief HPI Update: This is a 80-year-old man who was seen in follow-up today within his home with his /DPOA, Anastasiya and daughter, Davon present due to dementia with behavioral disturbances, depression, anxiety, constipation and decreased appetite. The patient has a longstanding history of anxiety. He continues on citalopram 20 mg daily. He has titrated off BuSpar as well as trazodone as neither were effective in relieving his symptoms and his desire to reduce his pill burden. He has had increased irritability and outbursts particularly in the evening related to sundowning and his quetiapine on last evaluation on 01/21 was increased to 75 mg nightly.His irritability appears to have stabilized however, the last 2 mornings he has refused his medications. He continues to be consistent with his evening medications. His family reports some increased depressive symptoms in regards to his interest in activities, TV and food. He has had visible weight loss per the report. 1 obtainment today his left MAC was 23 cm which is a decrease then it was previously in the fall 2019. The patient's appetite continues to diminish. Because of his underlying dementia he does not recall what foods he enjoys and what foods he dislikes. When he is offered foods he often will change his mind from 1 moment to the next and it is difficult for meal prep. He has a longstanding history of constipation. He is presently managed on MiraLAX 8.5g daily and Colace 250 mg nightly. When the patient's administered lactulose 10 g the patient had a strong response with frequent loose stools and therefore recommendation was to decrease the dose to lactulose 5 g if the patient has not had a bowel movement in 3 days. The patient's spouse has not given in a additional dose of lactulose since last evaluation. They have just recently obtained a calendar with stickers to billy when the patient has a bowel movement for visualization as he will perseverate regarding when his last bowel movement was. The patient's reports that his stools are soft and formed with no apparent straining. He does have a history of frequent UTIs and BPH. He is scheduled to be evaluated by urology March 06. No reports of dysuria presently. The patient's reports concerns about the patient getting up in the middle of the night and potentially leaving his room. He will get up is to void by using the urinal at the bedside. However, she is a deep sleeper and may not hear him if he gets up. This is a cause for concern as the home is a split level and to go into the common area the patient would have to ascend 3 steps without the use of support, supervision or his walker. He has recently completed home health physical therapy services. The patient is seen in his recliner in the living room slightly disheveled. His walker is beside him and he is watching TV. No evidence of acute distress. Past Medical History: Patient has a past medical history of hypertension, hyperlipidemia, type 2 diabetes mellitus, chronic constipation, BPH, incontinence, chronic hearing loss, depression, anxiety, insomnia, chronic back pain, dementia. COVID-19 vaccination completed. Social History - Living Situation Living arrangement: At home Living Situation: With family (, Anastasiya and son, Dez) Support System: Patient was adopted and grew up in . The patient and his , Anastasiya have been for almost 57 years. They have a have 3 children, 2 daughters and 1 son who are local in the area. The patient's daughter, Davon resides in [place] is overseeing medical appointments and medication management. The patient's son, DEZ resides in the home with his parents and provides help. They have been approved for [facility] and are moving forward with the final pa perwork regarding that. Unfortunately, they received notification that they did not qualify for [facility] as the patient did not have "a plan of care in place" and the patient's daughter plans to f/u regarding clarification. Medications/Allergies - Medications Home Medications: Ambulatory Orders Medication Instructions Recorded Confirmed Bisacodyl 10 mg PO DAILY PRN 08/28/16 02/11/21 Carvedilol [Coreg] 6.25 mg PO BID 08/28/16 02/11/21 Clopidogrel Bisulfate [Plavix] 75 mg PO DAILY 08/28/16 02/11/21 Insulin Glargine [Lantus] 10 units SQ DAILY 08/28/16 02/11/21 metFORMIN [Glucophage] 1,000 mg PO BID 08/28/16 02/11/21 Losartan Potassium 50 mg PO DAILY 07/29/20 02/11/21 Tamsulosin [Flomax] 0.4 mg PO DAILY 07/29/20 02/11/21 Trospium Chloride 20 mg PO BID 07/29/20 02/11/21 amLODIPine [Norvasc] 5 mg PO DAILY 07/29/20 02/11/21 Citalopram Hydrobromide [Celexa] 10 mg PO DAILY MDD x7 days then d/c 11/04/20 02/11/21 QUEtiapine [SEROquel] 75 mg PO QPM 11/04/20 02/11/21 polyethylene glycoL 3350 [Miralax] 8.5 g PO DAILY 11/26/20 02/11/21 Hydrocodone/Acetaminophen 0.5 tab PO Q8H PRN 12/25/20 02/11/21 [Hydrocodone-Acetamin 5-300 mg] cephALEXin [Keflex] 250 mg PO DAILY 12/25/20 02/11/21 Docusate Sodium [Dss] 1 cap PO DAILY 01/09/21 02/11/21 Lactulose 7.5 ml PO DAILY PRN MDD if no BM 01/09/21 02/11/21 in 3 days Mirtazapine [Remeron] 7.5 mg PO QPM 02/11/21 02/11/21 - Allergies Allergies/Adverse Reactions: Allergies Allergy/AdvReac Type Severity Reaction Status Date / Time Sulfa (Sulfonamide Allergy Unknown Verified 12/25/20 20:49 Antibiotics) Review of Systems - Constitutional Constitutional: reports: Poor appetite, Weight loss, Other (left MAC 23cm today; left MAC 09/2020 24cm). denies: Fever - Eyes Eyes: reports: Corrective lenses - Ears, Nose & Throat Ears, Nose & Throat: reports: Hearing loss. denies: Hearing aids, Dentures - Cardiovascular Cardiovascular: denies: Chest pain, Edema - Respiratory Respiratory: denies: Wheezing - Gastrointestinal Gastrointestinal: reports: Constipation (chronic, see HPI), Other (decreased appetite). denies: Abdominal pain, Nausea, Vomiting - Genitourinary Genitourinary: reports: Frequency, Incontinence, Nocturia. denies: Dysuria - Musculoskeletal Musculoskeletal: reports: Assistive devices, Transfer issues - Integumentary Integumentary: reports: Dryness - Neurological Neurological: reports: General weakness, Memory problems - Psychiatric Psychiatric: reports: Depression, Anxiety (uses cannabis in the evenings), Behavior disturbances (improved with quetipaine dose increase) - Endocrine Endocrine: reports: Diabetes type 2 (HgA1C 7.6% while inpatient 11/2020) - Hematologic/Lymphatic Hematologic/Lymph: reports: Recurrent infections (UTIs started on keflex 250mg daily on 11/26/2020) - All Other Systems All Other Systems: reports: Reviewed and negative (ROS supplemented by /DPOA, Anastasiya and lencho Mays, as patient is a poor historian due to dementia) Physical Exam - Vital Signs Temperature: 36.4 C Pulse Rate: 83 O2 Saturation: 98 (onRA) Blood Pressure: 155/73 (left wrist) - Physical Exam General Appearance: positive: No acute distress, Alert, Other (appears older than stated age, dishelved) Eyes Bilateral: positive: Normal inspection ENT: positive: No signs of dehydration, Other (poor dentition and missing teeth) Neck: positive: Trachea midline Cardiovascular: positive: Regular rate & rhythm, Systolic murmur (+2/6 BOLA) Respiratory: positive: No respiratory distress, Breath sounds nml Abdomen: positive: Non-tender, Soft, Nml bowel sounds, Obese. 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 His daughter recognizes the patient's decline and perceives that she is "slowly losing my dad." The patient's spouse also recognizes the decline and ultimately wishes for the patient to be comfortable in his home setting with herself and their family present. They present with some fears regarding the patient's functional decline for potential injury such as him getting up in the middle of the night. Made a suggestion of utilization of a baby monitor however, it is unlikely that the spouse would be able to make note if there is any noise on the baby monitor. Therefore, made a suggestion of the use of a baby gate at the foot of the stairs the patient will be unable to ascend into the common area until morning. He has completed home health physical therapy services and therefore has plateaued with his present functional status given his underlying cognitive impairment. They are looking forward to further assistance with regards to caregiving within the home with initiation of [place] PES. Impression and Recommendations - Palliative Care Impression: This is a 80-year-old gentleman with underlying dementia with behavioral disturbances, chronic constipation, anorexia and anxiety with depression. The patient recently has had his quetiapine adjusted. He would benefit from transitioning to a new anti a depressive medication such as mirtazapine for added benefit towards insomnia as well as appetite stimulation. Family is amenable to transitioning from citalopram to mirtazapine after weighing benefits versus burdens. Continue to work with the family regarding the patient's underlying chronic constipation. Palliative care to continue to provide support for symptom management, care coordination and transition to hospice services when medically appropriate. Recommendations/Counseling Done: 1. Depression with history of anxiety. The patient has transitioned off of trazodone and BuSpar. Presently continues on citalopram 20 mg daily with family reporting increased depressive symptoms. Will decrease citalopram to 10 mg daily x7 days with initiation of mirtazapine 7.5 mg nightly. After citalopram 10 mg is administered daily x7 days then discontinue would continue mirtazapine. Reviewed purpose, dose and side effects of mirtazapine at length with the patient's /DPOA daughter with understanding verbalized. Aware to contact palliative care with any concerns regarding medication management with mirtazapine. Continue to monitor. 2. Insomnia. Longstanding history. Trazodone was no longer effective and was discontinued. The patient continues to utilize cannabis. Initiate mirtazapine 7.5 mg nightly and it has some underlying sedative properties. Continue to monitor. Fall precautions. 3. Chronic constipation. Longstanding history. Patient has been sensitive to stimulating medications in the past. Continue MiraLAX half a cap daily dissolved in 48 ounces of liquid. Continue Dukas 8 250 mg nightly. Reiterated again today the use of lactulose 7.5 mL if the patient has not had a bowel movement in 3 days. The patient's sedentary lifestyle is contributing. Continue to utilize stickers with a low fluid culture for visualization for the patient when he has had a bowel movement and calming anxiety regarding this. 4. Protein calorie malnutrition due to dementia. Patient's left MAC has decreased to 23 cm. Patient's left MAC was 24 cm in September 2020. He continues to have a decreased appetite that is not unexpected due to advancement of his underlying dementia. Continue to encourage foods the patient finds pleasurable. Will initiate mirtazapine 7.5 mg nightly for appetite stimulation. Continue to monitor. 5. Dementia with behavioral disturbances. On no disease modifying agents. Continue quetiapine 75 mg nightly due to behavioral disturbances. Will transition from citalopram to mirtazapine as noted above in diagnosis depression with anxiety. Discussed utilization of a baby gate for reduction of wandering and potential falls without supervision at the base of the stairs and family to talk and consider this. Given the patient's advanced age and chronic comorbidities a gradual decline is expected. Follow-up 2 to 4 weeks or sooner if concerns. Total time spent 45 minutes with greater than 50% of the spent in counseling and coordination of care with the patient, /DPOA and daughter, Davon; supportive listening; review of medication management and side effects with mirtazapine; examination of patient; review of pain and symptom management anticipatory guidance. Disclaimer: The chart note was formulated using voice recognition technology and unfortunately sound alike errors may occur.
== END 2021-02-11 15:01 | disposition home or self-care (01) ==
LOC: PC 15:00
PROVIDERS: ATTEND Nurse Practitioner Family
DX: Z51.5 Encounter for palliative care (principal); F32.9 Major depressive disorder, single episode, unspecified; G47.00 Insomnia, unspecified; K59.00 Constipation, unspecified; E46 Unspecified protein-calorie malnutrition; F03.91 Unspecified dementia, unspecified severity, with behavioral disturbance; I10 Essential (primary) hypertension; E11.9 Type 2 diabetes mellitus without complications; Z91.81 History of falling; Z66 Do not resuscitate
CPT/HCPCS: 99349

== ENCOUNTER 2021-02-25 15:20 | Outpatient (CLI) | payer MEDICARE, OTHER ==
--- NOTE | 2021-02-25 17:17 | CONSULTATION NOTE ---
Palliative Care Follow Up - Referral Referring Provider: Dr. Franco Hernandes/Jeana Byrne PA-C Time of Visit: 4801-2192 Referral setting: Home Referral Reason: Insomnia/Depression/Constipation/Dementia with behavior - Information Sources Records reviewed: Previous records reviewed History/Review of Systems obtained from: Patient, Family (/Anastasiya HERRERA and daughterdavon) Exam limitations: Clinical condition (Advanced Dementia and [place]) - History of Present Illness Update Brief HPI Update: This is a 80-year-old man who was seen in follow-up today within his home with his /SHARON, Anastasiya and daughter, Davon present due to dementia with behavioral disturbances, depression, anxiety, insomnia, and constipation. The patient is a longstanding history of anxiety. Due to a decrease in appetite, weight loss and underlying insomnia he has discontinued citalopram and transition to mirtazapine 7.5 mg nightly. This has been a positive effect as he is sleeping through the night except getting up to use the urinal in his bedroom. The patient's and son deny him being found in the living room overnight when no one else is present. No recent falls and has a significant history for falls without injury. He continues to chery constipation. If pushed too far the patient will have "explosive diarrhea" per the 's report. He presently is maintained on Colace 250 mg nightly. And the patient's has increased the dose of MiraLAX from half a cap to 1 cap daily in the last week with improvement in the patient's defecation. He has had a bowel movement the last 3 days that has been soft and formed with no reported straining. The patient's does not wish to utilize lactulose if there is no bowel movement in the future due to previous response. The family is utilizing a separate calendar with stickers to billy when the patient has a bowel movement for visualization and to remind the patie nt as he often perseverates regarding his bowel movements. He has recently had a uptick in his appetite consuming sandwiches, stuffed peppers, quesadillas and mozzarella sticks. The is consistently offering food and the patient is grazing during the day. He typically is reporting that he is not interested in eating dinner. Did encourage the patient's family that they may utilize a milkshake with Glucerna at dinner if the patient is not interested in a meal to continue to include him in the family routine and for additional protein supplementation. The patient's voices frustration that the patient has urinary incontinence and frequency. The patient will recognize when he has to urinate and then will need to quickly go however, this is difficult to act upon as he is with poor mobility and at high risk for falls. He does have underlying BPH and is currently being managed. The patient has a pending urology appointment on March 06. Denies any dysuria or hematuria. He presently is on cephalexin for UTI prophylaxis due to history of frequent UTIs. The patient is seen in the living room, slightly disheveled. No acute distress. He is interested in the sugar-free chocolates that have been offered to him and engaged when talking about dogs. Past Medical History: Patient has a past medical history of hypertension, hyperlipidemia, type 2 diabetes mellitus, chronic constipation, BPH, incontinence, chronic hearing loss, depression, anxiety, insomnia, chronic back pain, dementia. COVID-19 vaccination completed. Social History - Living Situation Living arrangement: At home Living Situation: With family (, Anastasiya and son, Dez) Support System: Patient was adopted and grew up in [place], [place]. The patient and his , Anastasiya have been for almost 57 years. They have a have 3 children, 2 daughters and 1 son who are local in the area. The patient's daughter, Davon resides in [place] is overseeing medical appointments and medication management. The patient's son, DEZ resides in the home with his parents and provides help. They have been approved for [facility]. Received previous notification that the patient did not qualify for [facility] as the patient did not have a "plan of care in place." The patient's daughter has been diligently attempting to contact the office but has not had present success. She is to see if there is an email or fax for additional assistance and palliative care will provide any additional assistance if possible regarding the needed plan, including documentation. Medications/Allergies - Medications Home Medications: Ambulatory Orders Medication Instructions Recorded Confirmed Bisacodyl 10 mg PO DAILY PRN 08/28/16 02/11/21 Carvedilol [Coreg] 6.25 mg PO BID 08/28/16 02/11/21 Clopidogrel Bisulfate [Plavix] 75 mg PO DAILY 08/28/16 02/11/21 Insulin Glargine [Lantus] 10 units SQ DAILY 08/28/16 02/11/21 metFORMIN [Glucophage] 1,000 mg PO BID 08/28/16 02/11/21 Losartan Potassium 50 mg PO DAILY 07/29/20 02/11/21 Tamsulosin [Flomax] 0.4 mg PO DAILY 07/29/20 02/11/21 Trospium Chloride 20 mg PO BID 07/29/20 02/11/21 amLODIPine [Norvasc] 5 mg PO DAILY 07/29/20 02/11/21 QUEtiapine [SEROquel] 75 mg PO QPM 11/04/20 02/11/21 polyethylene glycoL 3350 [Miralax] 17 g PO DAILY 11/26/20 02/11/21 Hydrocodone/Acetaminophen 0.5 tab PO Q8H PRN 12/25/20 02/11/21 [Hydrocodone-Acetamin 5-300 mg] cephALEXin [Keflex] 250 mg PO DAILY 12/25/20 02/11/21 Docusate Sodium [Dss] 1 cap PO DAILY 01/09/21 02/11/21 Lactulose 7.5 ml PO DAILY PRN MDD if no BM 01/09/21 02/11/21 in 3 days Mirtazapine [Remeron] 7.5 mg PO QPM 02/11/21 02/11/21 - Allergies Allergies/Adverse Reactions: Allergies Allergy/AdvReac Type Severity Reaction Status Date / Time Sulfa (Sulfonamide Allergy Unknown Verified 02/25/21 17:26 Antibiotics) Review of Systems - Constitutional Constitutional: reports: Weight loss, Other (left MAC 23cm today, 02/25/2021; left MAC 23cm 02/11/2021; left MAC 09/2020 24cm). denies: Fever - Eyes Eyes: reports: Corrective lenses - Ears, Nose & Throat Ears, Nose & Throat: reports: Hearing loss. denies: Hearing aids - Cardiovascular Cardiovascular: denies: Chest pain, Edema - Respiratory Respiratory: denies: Wheezing - Gastrointestinal Gastrointestinal: reports: Constipation (chronic, see HPI), Other (decreased appetite with recent improvement, see HPI). denies: Abdominal pain, Vomiting - Genitourinary Genitourinary: reports: Frequency, Urgency (once he has the sensation to urinate), Incontinence, Nocturia. denies: Dysuria - Musculoskeletal Musculoskeletal: reports: Assistive devices, Transfer issues - Integumentary Integumentary: reports: Dryness - Neurological Neurological: reports: General weakness, Memory problems - Psychiatric Psychiatric: reports: Depression, Anxiety (uses cannabis in the evenings), Behavior disturbances (stable with quetipaine presently) - Endocrine Endocrine: reports: Diabetes type 2 (HgA1C 7.6% while inpatient 11/2020) - Hematologic/Lymphatic Hematologic/Lymph: reports: Recurrent infections (UTIs started on keflex 250mg daily on 11/26/2020) - All Other Systems All Other Systems: reports: Reviewed and negative (ROS supplemented by /DPOA, Anastasiya and lencho Mays, as patient is a poor historian due to dementia) Physical Exam - Vital Signs Temperature: 36.3 C Pulse Rate: 81 O2 Saturation: 97 (on RA) Blood Pressure: 144/68 (left arm) - Physical Exam General Appearance: positive: No acute distress, Alert, Other (appears older than stated age, dishelved) Eyes Bilateral: positive: Normal inspection ENT: positive: No signs of dehydration Neck: positive: Trachea midline Cardiovascular: positive: Regular rate & rhythm, Systolic murmur (+2/6 BOLA) Respiratory: positive: No respiratory distress, Breath sounds nml. 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 He is having urinary incontinence due to his underlying history of BPH that is further compounded by his decreased mobility and underlying dementia. Normalized the patient's spouse's feelings regarding the patient's urinary frequency and incontinence. Made suggestions to have the patient void every 2 hours when he is awake as well as to praxis double voiding to reduce residual urine in the bladder. Patient spouse is open to these recommendations. The patient continues to struggle with constipation that has been a longstanding and chronic issue. Discussed dose titration with MiraLAX and presently is tolerating dose increased to 1 cap daily in addition to Colace 250 mg capsule daily. The patient's is interested in utilizing a fiber supplement. Advised that this may be utilized however, would start low and go slow given his fiber can increased flatus and bloating with understanding verbalized. Impression and Recommendations - Palliative Care Impression: This is a 80-year-old gentleman with underlying dementia with behavioral disturbances, chronic constipation, insomnia, and anxiety with depression. The patient's behavioral disturbances have plateaued with utilization of quetiapine. The patient's family is still titrating his MiraLAX to find the appropriate administration for routine bowel movements. His overnight insomnia has improved since transitioning to more pads as a pain and there has been no reported anxiety episodes. Palliative care to continue provide support for symptom management, care coordination, anticipatory guidance, and a transition to hospice services when medically appropriate. Recommendations/Counseling Done: 1. Chronic constipation. Longstanding history. Patient has been sensitive to stimulating medications in the past such as senna. Would continue MiraLAX 1 cap daily dissolved in 6 ounces of fluid. Discussed darlene dose titration of MiraLAX with patient's daughter and spouse up to 2 caps daily in divided dosage. Would continue Colace 250 mg nightly. The patient's is hesitant to utilize lactulose even at a reduced dose if the patient has not had a bowel movement in 3 days and will work on titration of MiraLAX. The patient's sedentary lifestyle is contributing to his constipation. We will continue to utilize the calendar with stickers for visualization the patient when he has defecated to reduce anxiety and perseverating behaviors. 2. Insomnia. Longstanding history. Trazodone was previously discontinued. The patient continues to utilize cannabis. Has tolerated transition to mirtazapine 7.5 mg nightly and this has aided in the patient's sleep. Fall precautions. Continue to monitor. 3. Depression with history of anxiety. The patient has transitioned from citalopram which has been discontinued to mirtazapine 7.5 mg nightly. No evidence of increased anxiety during transition. There is room to titrate up on mirtazapine dosage. Presently the patient has tolerated this transition well. Continue to monitor and adjust medication regimen based on the patient's response and symptoms. 4. BPH with urinary incontinence. The patient has is urinary incontinence that is exacerbated by his underlying dementia and mobility. Would continue to utilize the use of his urinal for fall prevention. Encouraged to have the patient void every 2 hours when he is awake as well as double voiding to reduce residual urine which the is amenable to implementing. Continue on flomax and trospium as ordered by PCP. Patient to follow-up with urologist for additional recommendations. 5.Dementia with behavioral disturbances. On no disease modifying agents. Continue quetiapine 75 mg nightly due to behavioral disturbances. Does have a history of sundowning behaviors. The patient typically is ready to respond to his spouse's request versus his children's. Given the patient's advanced age an d chronic comorbidities a gradual decline is expected. Total time spent 30 minutes with greater than 50% of the spent in counseling and coordination of care with the patient, /DPOA and daughter, Davon; supportive listening; review of medication management and control of constipation symptoms; examination of patient; review of pain and symptom management and anticipatory guidance. Disclaimer: The chart note was formulated using voice recognition technology and unfortunately sound alike errors may occur.
== END 2021-02-25 15:21 | disposition home or self-care (01) ==
LOC: PC 15:20
PROVIDERS: ATTEND Nurse Practitioner Family
DX: Z51.5 Encounter for palliative care (principal); K59.00 Constipation, unspecified; G47.00 Insomnia, unspecified; F32.9 Major depressive disorder, single episode, unspecified; F41.9 Anxiety disorder, unspecified; N40.1 Benign prostatic hyperplasia with lower urinary tract symptoms; R35.0 Frequency of micturition; N39.498 Other specified urinary incontinence; F03.91 Unspecified dementia, unspecified severity, with behavioral disturbance; E11.9 Type 2 diabetes mellitus without complications; Z79.4 Long term (current) use of insulin
CPT/HCPCS: 99348

== ENCOUNTER 2021-03-05 18:59 | Outpatient (CLI) | payer MEDICARE, OTHER | END 2021-03-05 19:00 | disposition short-term general hospital (02) | LOC: EMS 18:59 | DX: R53.1 Weakness (principal); F41.9 Anxiety disorder, unspecified; R41.0 Disorientation, unspecified | CPT/HCPCS: A0425; A0427 ==

== ENCOUNTER 2021-04-06 08:00 | Outpatient (CLI) | payer MEDICARE, OTHER | END 2021-04-06 23:59 | disposition home or self-care (01) | LOC: LAB.R 08:00 | PROVIDERS: ATTEND Family Medicine | DX: N39.0 Urinary tract infection, site not specified (principal) | CPT/HCPCS: 87077; 87086; 87181 ==